=== PATIENT | male | born 1980 | race Caucasian/White ===

== ENCOUNTER 2019-06-05 19:45 | Emergency (ER) | payer BC ==
[2019-06-05] MEDS ORDERED: MAGNESIUM SULFATE 1 gm IVPB 1 GM/100 ML BAG IV ONE (19:58)
[2019-06-05] MEDS ORDERED: MORPHINE 4 MG/ML SYR ONE (19:58)
[2019-06-05] MEDS ORDERED: TAMSULOSIN 0.4 MG SR CAP ONE (19:58)
[2019-06-05 20:12] LABS: Absolute Lymphocytes (CBC) 2.9 K/uL (0.7-4.9); Hematocrit 47.6 % (39.6-49.0); MPV 8.4 fL (7.6-11.3); RBC Red Blood Cell Count 5.51 M/uL (4.33-5.43)
[2019-06-05 20:15] LABS: Urine Mucus 1+ /HPF (NONE SEEN)
[2019-06-05 20:16] LABS: Urine Bacteria >50 /HPF (NONE SEEN); Urine Culture Reflex Order REFLEXED; Urine RBC >50 /HPF (NONE SEEN); Urine Yeast MANY (NONE SEEN)
[2019-06-05 20:27] LABS: Albumin 4.2 g/dL (3.4-5.0); Bilirubin Direct 0.1 mg/dL (0-0.2); Bilirubin Total 0.5 mg/dL (0.2-1.0); Potassium 3.7 mmol/L (3.5-5.1); Protein, Total 7.9 g/dL (6.4-8.2)
[2019-06-05] MEDS ORDERED: HYDROMORPHONE HCL 1 MG/ML INJ ONE (20:28)
[2019-06-05] MEDS ORDERED: KETOROLAC 30 MG/ML INJ ONE (20:28)
--- NOTE | 2019-06-05 20:44 | RAD REPORT ---
EXAM DESCRIPTION: CT - Stone Protocol - 06/05/2019 8:11 pm CLINICAL HISTORY: Abdominal pain. Right flank pain COMPARISON: None. TECHNIQUE: Computed axial tomography of the abdomen pelvis was obtained without oral or IV contrast. Lack of IV and oral contrast limits evaluation of solid organs, bowel, and vessels. Coronal reformat germania images were obtained and reviewed. All CT scans are performed using dose optimization technique as appropriate and may include automated exposure control or mA/KV adjustment according to patient size. FINDINGS: Tiny bilateral renal calculi. Mild right hydronephrosis. 3 millimeter calculus is present within the distal right ureter.A bladder calculus is not present. The liver, spleen, pancreas and adrenals appear grossly normal There is no evidence of diverticulitis. The appendix appears normal Small to moderate bilateral hernias contain fat. Small umbilical hernia IMPRESSION: 3 millimeter calculus distal right ureter resulting in mild right hydronephrosis
[2019-06-05 21:06] LABS: Urine Blood 3+ (NEG); Urine Glucose NEGATIVE (NEG); Urine Protein 3+ (NEG); Urine Specific Gravity >1.030 (1.005-1.030); Urine pH 5.5 (5.0-7.0)
[2019-06-05] MEDS ORDERED: HYDROMORPHONE HCL 0.5 MG/0.5 ML INJ ONE (22:28)
--- NOTE | 2019-06-05 23:04 | ER ---
Nurse's Notes [facility] Name: Mack Duffy Age: 39 yrs Sex: Male : 1980 Arrival Date: 06/05/2019 Time: 19:47 Bed 6 Private MD: Diagnosis: Ureterolithiasis Presentation: 06/05 19:48 Presenting complaint: Patient states: he had sudden onset of right sided pain radiating bb to abdomen pain is 10/10 continuous he is having difficulty walking, pain started suddenly 30-60 minutes ago and he has not had these symptoms before although he does have chronic back pain from "bad discs". Transition of care: patient was not received from another setting of care. Onset of symptoms was June 05, 2019. Risk Assessment: Do you want to hurt yourself or someone else? Patient reports no desire to harm self or others. Initial Sepsis Screen: Does the patient meet any 2 criteria? No. Patient's initial sepsis screen is negative. Does the patient have a suspected source of infection? No. Patient's initial sepsis screen is negative. Care prior to arrival: None. 19:48 Method Of Arrival: Wheelchair bb 19:48 Acuity: ARIANA 3 bb Historical: - Allergies: 19:52 Vicodin; bb 19:52 mangos; bb - Home Meds: 19:52 Unable to obtain [Active]; bb - PMHx: 19:52 PTSD; ulcertive colitis; chronic back pain; sciatica; bb - PSHx: 19:52 Cholecystectomy; bb - Immunization history:: Adult Immunizations up to date. - Social history:: Smoking status: Patient/guardian denies using tobacco, Patient uses alcohol, occasionally. Patient/guardian denies using street drugs. - Ebola Screening: : No symptoms or risks identified at this time. - Family history:: not pertinent. - Hospitalizations: : No recent hospitalization is reported. Screenin:53 Abuse screen: Denies threats or abuse. Nutritional screening: No deficits noted. jb4 Tuberculosis screening: No symptoms or risk factors identified. Fall Risk IV access (20 points). Gait- Impaired (20 pts.). Total Marie Fall Scale indicates Low Risk Score (25-44 pts). Fall prevention measures have been instituted. Side Rails Up X 2 Placed close to Nursing Station Frequent Obs/Assesments occuring Family Present and informed to notify staff if they need to leave bedside As available Patient and Family Educated on Fall Prevention Program and strategies. Assessment: 19:50 General: Appears distressed, uncomfortable, Behavior is cooperative, agitated, anxious, jb4 restless. Pain: Complains of pain in anterior aspect of right lateral abdomen and right lower quadrant Pain radiates to right low back Pain currently is 10 out of 10 on a pain scale. Quality of pain is described as stabbing, Pain began 1 hour ago. Neuro: Level of Consciousness is awake, alert, obeys commands, Oriented to person, place, time, situation. Cardiovascular: Skin is warm and diophoretic.. Respiratory: Airway is patent Respiratory effort is even, unlabored, Respiratory pattern is regular, tachypnea. GI: Abdomen is flat, non-distended. : No deficits noted. No signs and/or symptoms were reported regarding the genitourinary system. EENT: No deficits noted. No signs and/or symptoms were reported regarding the EENT system. Derm: Skin is intact, Skin is diaphoretic, Skin is normal, Skin temperature is warm. Musculoskeletal: Circulation, motion, and sensation intact. Range of motion: intact in all extremities. 20:26 Reassessment: Patient appears in no apparent distress at this time. No changes from jb4 previously documented assessment. Patient and/or family updated on plan of care and expected duration. Pain level reassessed. Pt back from CT reports pain medication had no effect, provider notified, see MAR for orders. 20:50 Reassessment: Patient appears in no apparent distress at this time. Patient and/or jb4 family updated on plan of care and expected duration. Pain level reassessed. Patient is alert, oriented x 3, equal unlabored respirations, skin warm/dry/pink. PT reports that pain is reduced after Toradol and Dilaudid administration. Provider at the bedside. Patient states feeling better. 22:30 Reassessment: Patient appears in no apparent distress at this time. Patient and/or jb4 family updated on plan of care and expected duration. Pain level reassessed. Patient is alert, oriented x 3, equal unlabored respirations, skin warm/dry/pink. 23:01 Reassessment: Patient appears in no apparent distress at this time. Patient and/or jb4 family updated on plan of care and expected duration. Pain level reassessed. Patient is alert, oriented x 3, equal unlabored respirations, skin warm/dry/pink. Patient states feeling better. 23:27 Reassessment: Patient appears in no apparent distress at this time. Patient and/or jb4 family updated on plan of care and expected duration. Pain level reassessed. Patient is alert, oriented x 3, equal unlabored respirations, skin warm/dry/pink. Pt verbalized understanding of d/c and follow up instructions. assisted to vehicle via wheelchair. Patient states feeling better. Vital Signs: 19:52 BP 154 / 98; Pulse 81; Resp 18 S; Temp 98.3(O); Pulse Ox 99% on R/A; Weight 127.01 kg bb (R); Height 6 ft. 5 in. (195.58 cm) (R); Pain 10/10; 20:30 BP 137 / 106; Pulse 65; Resp 20; Pulse Ox 99% on R/A; jb4 20:45 BP 130 / 88; Pulse 70; Resp 16; Pulse Ox 97% on R/A; jb4 22:15 BP 130 / 82; Pulse 72; Resp 16; Pulse Ox 98% on R/A; jb4 23:01 BP 121 / 77; Pulse 67; Resp 16; Pulse Ox 97% on R/A; jb4 19:52 Body Mass Index 33.20 (127.01 kg, 195.58 cm) bb ED Course: 19:47 Patient arrived in ED. bb 19:50 Jose Alejandro Portillo MD is Attending Physician. rn 19:50 Salvatore Sweet RN is Primary Nurse. jb4 19:50 Inserted saline lock: 20 gauge in right antecubital area, using aseptic technique. jb4 Blood collected. 19:51 Triage completed. bb 19:52 Arm band placed on Patient placed in an exam room, on a stretcher, on pulse oximetry. bb Family accompanied patient. 19:53 Patient has correct armband on for positive identification. Placed in gown. Bed in low jb4 position. Call light in reach. Side rails up X2. Pulse ox on. NIBP on. 20:11 CT Stone Protocol In Process Unspecified. EDMS 23:00 Reagan Ordonez MD is Referral Physician. rn 23:27 No provider procedures requiring assistance completed. IV discontinued, intact, jb4 bleeding controlled, No redness/swelling at site. Pressure dressing applied. Administered Medications: 20:00 Drug: Flomax 0.4 mg Route: PO; jb4 20:37 Follow up: Response: No adverse reaction jb4 20:02 Drug: morphine 4 mg Route: IVP; Site: right antecubital; jb4 20:26 Follow up: Response: No adverse reaction; Pain is unchanged, physician notified; RASS: jb4 Restless (+1) 20:20 Drug: Magnesium Sulfate 1 grams Route: IVPB; Infused Over: 1 hrs; Site: right jb4 antecubital; 21:20 Follow up: Response: No adverse reaction; IV Status: Completed infusion; IV Intake: jb4 100ml 20:29 Drug: TORadol - Ketorolac 15 mg Route: IVP; Site: right antecubital; jb4 20:43 Follow up: Response: No adverse reaction; Pain is decreased jb4 20:35 Drug: Dilaudid 1 mg {Note: Rass score of 1.} Route: IVP; Site: right antecubital; jb4 20:43 Follow up: Response: No adverse reaction; Pain is decreased; RASS: Alert and Calm (0) jb4 21:51 CANCELLED (Duplicate Order): Dilaudid 1 mg IVP once; RASS on ADMIN: Combtv4, Very rn Agttd3, Agttd2, Rstlss1, AlertClm0, Drwsy-1, Lt Sdtn-2, Mod Sdtn-3, Dp Sdtn-4, UnArsble-5 22:30 Drug: Dilaudid 0.5 mg {Note: RASS 0.} Route: IVP; Site: right antecubital; bb 23:00 Follow up: Response: No adverse reaction; Pain is decreased; RASS: Alert and Calm (0) jb4 Intake: 21:20 IV: 100ml; Total: 100ml. jb4 Outcome: 23:01 Discharge ordered by . rn 23:27 Discharged to home via wheelchair, with family. jb4 23:27 Condition: stable 23:27 Discharge instructions given to patient, family, Instructed on discharge instructions, follow up and referral plans. medication usage, Demonstrated understanding of instructions, follow-up care, medications, Prescriptions given X 4. 23:28 Patient left the ED. jb4 Signatures: Dispatcher [employer] EDMS Valorie Whitea, RN RN bb Jose Alejandro Portillo MD MD rn Bryson, James, RN RN jb4
--- NOTE | 2019-06-05 23:05 | EDPHYS ---
Physician Documentation [facility] Name: Mack Duffy Age: 39 yrs Sex: Male : 1980 Arrival Date: 06/05/2019 Time: 19:47 Bed 6 Private MD: ED Physician Jose Alejandro Portillo HPI: 06/05 19:55 This 39 yrs old Male presents to ER via Wheelchair with complaints of Flank rn Pain, Abdominal Pain. 19:55 The patient complains of pain in the mid back area. The pain radiates to the abdomen. rn Onset: The symptoms/episode began/occurred 1 hour(s) ago. Modifying factors: The symptoms are alleviated by nothing. the symptoms are aggravated by nothing. Associated signs and symptoms: Pertinent positives: nausea. Severity of pain: At its worst the pain was severe in the emergency department the pain is unchanged. The patient has not experienced similar symptoms in the past. Reports sudden onset right flank pain, difficulty urinating, no hx of kidney stones, No fever, no trauma, no vomiting/diarrhea/blood in stools.. Historical: - Allergies: 19:52 Vicodin; bb 19:52 mangos; bb - Home Meds: 19:52 Unable to obtain [Active]; bb - PMHx: 19:52 PTSD; ulcertive colitis; chronic back pain; sciatica; bb - PSHx: 19:52 Cholecystectomy; bb - Immunization history:: Adult Immunizations up to date. - Social history:: Smoking status: Patient/guardian denies using tobacco, Patient uses alcohol, occasionally. Patient/guardian denies using street drugs. - Ebola Screening: : No symptoms or risks identified at this time. - Family history:: not pertinent. - Hospitalizations: : No recent hospitalization is reported. ROS: 19:55 Constitutional: Negative for fever, chills, and weight loss, Eyes: Negative for injury, rn pain, redness, and discharge, Neck: Negative for injury, pain, and swelling, Cardiovascular: Negative for chest pain, palpitations, and edema, Respiratory: Negative for shortness of breath, cough, wheezing, and pleuritic chest pain, Abdomen/GI: + right flank pain and nausea : + difficulty urinating MS/Extremity: Negative for injury and deformity, Skin: Negative for injury, rash, and discoloration, Neuro: Negative for headache, weakness, numbness, tingling, and seizure. Exam: 19:55 Constitutional: This is a well developed, well nourished patient who is awake, alert, rn + moderate distress, holding right side Head/Face: Normocephalic, atraumatic. ENT: MMM Cardiovascular: Regular rate and rhythm. No pulse deficits. Respiratory: Mild hyperventilation Abdomen/GI: soft, non-tender, neg bell, no peritoneal signs Skin: Warm, dry MS/ Extremity: Pulses equal, no cyanosis. Neurovascular intact. Full, normal range of motion. Equal circumference. Neuro: Awake and alert, GCS 15, oriented to person, place, time, and situation. Cranial nerves II-XII grossly intact. Motor strength 5/5 in all extremities. Sensory grossly intact. Cerebellar exam normal. Vital Signs: 19:52 BP 154 / 98; Pulse 81; Resp 18 S; Temp 98.3(O); Pulse Ox 99% on R/A; Weight 127.01 kg bb (R); Height 6 ft. 5 in. (195.58 cm) (R); Pain 10/10; 20:30 BP 137 / 106; Pulse 65; Resp 20; Pulse Ox 99% on R/A; jb4 20:45 BP 130 / 88; Pulse 70; Resp 16; Pulse Ox 97% on R/A; jb4 22:15 BP 130 / 82; Pulse 72; Resp 16; Pulse Ox 98% on R/A; jb4 23:01 BP 121 / 77; Pulse 67; Resp 16; Pulse Ox 97% on R/A; jb4 19:52 Body Mass Index 33.20 (127.01 kg, 195.58 cm) bb MDM: 19:50 Patient medically screened. rn 20:53 Response to treatment: the patient's symptoms have markedly improved after treatment. rn 22:59 Differential diagnosis: nephrolithiasis. Data reviewed: vital signs, nurses notes, animal laboratory helper test result(s), radiologic studies, CT scan, and as a result, I will discharge patient. Counseling: I had a detailed discussion with the patient and/or guardian regarding: the historical points, exam findings, and any diagnostic results supporting the discharge/admit diagnosis, lab results, radiology results, the need for outpatient follow up, to return to the emergency department if symptoms worsen or persist or if there are any questions or concerns that arise at home. Special discussion: I discussed with the patient/guardian in detail that at this point there is no indication for admission to the hospital. It is understood, however, that if the symptoms persist or worsen the patient needs to return immediately for re-evaluation. ED course: Patient much improved, 3mm distal stone, will dc home with pain meds and return precautions.. 06/05 19:53 Order name: Basic Metabolic Panel rn 06/05 19:53 Order name: CBC with Diff; Complete Time: 21:03 06/05 19:53 Order name: Hepatic Function; Complete Time: 21: 06/05 19:53 Order name: Urine Microscopic Only; Complete Time: 21:03 06/05 19:54 Order name: Basic Metabolic Panel; Complete Time: 21:03 EDNC 06/05 20:20 Order name: Urine Culture [facility] 06/05 19:53 Order name: CT Stone Protocol; Complete Time: 21:03 06/05 20:39 Order name: Urine Dipstick--Ancillary (enter results) [facility] 06/05 19:53 Order name: IV Saline Lock; Complete Time: 19:55 06/05 19:53 Order name: Labs collected and sent; Complete Time: 19:55 rn 06/05 19:53 Order name: Urine Dipstick-Ancillary (obtain specimen); Complete Time: 20:07 rn Administered Medications: 20:00 Drug: Flomax 0.4 mg Route: PO; jb4 20:37 Follow up: Response: No adverse reaction jb4 20:02 Drug: morphine 4 mg Route: IVP; Site: right antecubital; jb4 20:26 Follow up: Response: No adverse reaction; Pain is unchanged, physician notified; RASS: jb4 Restless (+1) 20:20 Drug: Magnesium Sulfate 1 grams Route: IVPB; Infused Over: 1 hrs; Site: right jb4 antecubital; 21:20 Follow up: Response: No adverse reaction; IV Status: Completed infusion; IV Intake: jb4 100ml 20:29 Drug: TORadol - Ketorolac 15 mg Route: IVP; Site: right antecubital; jb4 20:43 Follow up: Response: No adverse reaction; Pain is decreased jb4 20:35 Drug: Dilaudid 1 mg {Note: Rass score of 1.} Route: IVP; Site: right antecubital; jb4 20:43 Follow up: Response: No adverse reaction; Pain is decreased; RASS: Alert and Calm (0) jb4 21:51 CANCELLED (Duplicate Order): Dilaudid 1 mg IVP once; RASS on ADMIN: Combtv4, Very rn Agttd3, Agttd2, Rstlss1, AlertClm0, Drwsy-1, Lt Sdtn-2, Mod Sdtn-3, Dp Sdtn-4, UnArsble-5 22:30 Drug: Dilaudid 0.5 mg {Note: RASS 0.} Route: IVP; Site: right antecubital; bb 23:00 Follow up: Response: No adverse reaction; Pain is decreased; RASS: Alert and Calm (0) jb4 Disposition: 06/05/19 23:01 Discharged to Home. Impression: Ureterolithiasis. - Condition is Stable. - Discharge Instructions: Kidney Stones, Dietary Guidelines to Help Prevent Kidney Stones. - Prescriptions for Zofran ODT 4 mg Oral tablet,disintegrating - place 1 tablet by TRANSLINGUAL route every 8 hours As needed; 20 tablet. Ibuprofen 800 mg Oral Tablet - take 1 tablet by ORAL route every 12 hours As needed take with food; 20 tablet. Tylenol- Codeine #3 300-30 mg Oral Tablet - take 2 tablets by ORAL route every 6 hours As needed; 20 tablet. Flomax 0.4 mg Oral Capsule, Sust. Release 24 hr - take 1 capsule by ORAL route once daily 1/2 hour following the same meal each day. Stop taking when pain stops. Only take while passing stone.; 10 capsule. - Medication Reconciliation Form, Thank You Letter, Antibiotic Education, Prescription Opioid Use form. - Follow up: Reagan Ordoenz MD; When: As needed; Reason: Recheck today's complaints, Re-evaluation by your physician. - Problem is new. - Symptoms have improved. Signatures: Dispatcher [employer] Samina Denny RN RN Jose Alejandro Madison MD MD rn Bryson, James, RN RN jb4 Corrections: (The following items were deleted from the chart) 21:51 21:51 Dilaudid 1 mg IVP once; RASS on ADMIN: Combtv4, Very Agttd3, Agttd2, Rstlss1, rn AlertClm0, Drwsy-1, Lt Sdtn-2, Mod Sdtn-3, Dp Sdtn-4, UnArsble-5 ordered. rn 23:28 23:01 06/05/2019 23:01 Discharged to Home. Impression: Ureterolithiasis. Condition is jb4 Stable. Forms are Medication Reconciliation Form, Thank You Letter, Antibiotic Education, Prescription Opioid Use. Follow up: Reagan Ordonez; When: As needed; Reason: Recheck today's complaints, Re-evaluation by your physician. Problem is new. Symptoms have improved. rn
== END 2019-06-05 23:28 | disposition home or self-care (01) ==
LOC: ER 19:45
DX: N20.1 Calculus of ureter (principal); Z88.6 Allergy status to analgesic agent; Z91.018 Allergy to other foods
CPT/HCPCS: 96365; 87088; 85025; 87086; 80048; 36415; 80076; 76377; 74176; 96375; 99284; J3475; J1170 ×2; 81003; 81015

== ENCOUNTER 2019-06-08 08:17 | Observation (INO) | payer BC ==
[2019-06-08] MEDS ORDERED: MAGNESIUM SULFATE 1 gm IVPB 1 GM/100 ML BAG IV ONE (08:33)
[2019-06-08] MEDS ORDERED: ONDANSETRON 4 MG/2 ML VIAL ONE (08:33)
[2019-06-08] MEDS ORDERED: MORPHINE 4 MG/ML SYR ONE (08:33)
[2019-06-08] MEDS ORDERED: HYDROMORPHONE HCL 0.5 MG/0.5 ML INJ ONE (08:53)
[2019-06-08 08:54] LABS: Potassium 4.1 mmol/L (3.5-5.1)
--- NOTE | 2019-06-08 08:55 | RAD REPORT ---
EXAM DESCRIPTION: CT - Stone Protocol - 06/08/2019 8:45 am CLINICAL HISTORY: Right flank pain, right lower quadrant pain, history kidney stones COMPARISON: June 05 CT study TECHNIQUE: Axial 5 mm thick images were obtained without oral or IV contrast. The [id number] span s the entirety of the system including uppermost abdomen and lung bases. All CT scans are performed using dose optimization technique as appropriate and may include automated exposure control or mA/KV adjustment according to patient size. FINDINGS: The 3-4 mm obstructing calculus distal right ureter remains unchanged in position. Right-s ided hydronephrosis is slightly worse than seen June 05. Perinephric stranding is present new from prior imaging. No acute left finding. No suspicious renal masses. Isodense masses and pyelonephrit is are not excluded on a stone protocol CT scan. Urinary bladder is contracted. No acute finding. No significant adrenal finding. Imaged portions of the liver, spleen and pancreas show no suspicious findings on non-contrast imaging . Cholecystectomy clips are present. No biliary tree dilatation. No suspicious bowel findings. Moderate stool volume seen in the colon. No hernia, mass or bulky lymphadenopathy noted. No free air, free fluid or inflammatory stranding. No significant bony abnormality. IMPRESSION: Approximately 3-4 mm distal right ureter calcification at the UVJ. Size and position hav e not changed. Right-sided hydronephrosis is slightly worse than seen June 05. Right-sided perinephric stranding h as developed. Isodense masses and pyelonephritis are not excluded on stone protocol technique.
[2019-06-08] MEDS ORDERED: KETOROLAC 30 MG/ML INJ ONE (09:11)
[2019-06-08] MEDS ORDERED: NA CHLORIDE 0.9% 1,000 ML ONE (09:11)
[2019-06-08] MEDS ORDERED: CEFTRIAXONE/SWI 1gm 1 GM/10 ML SYR ONE (09:27)
[2019-06-08 09:38] LABS: Absolute Lymphocytes (CBC) 1.3 K/uL (0.7-4.9); Basophils % 0.7 % (0-1.3); Hematocrit 43.1 % (39.6-49.0); Lymphocytes % 18.4 % (15.3-44.8); MPV 8.2 fL (7.6-11.3); RBC Red Blood Cell Count 5.03 M/uL (4.33-5.43)
--- NOTE | 2019-06-08 09:40 | ER ---
Nurse's Notes [facility] Name: Mack Duffy Age: 39 yrs Sex: Male : 1980 Arrival Date: 06/08/2019 Time: 08:18 Bed 20 Private MD: Diagnosis: Calculus of kidney and ureter;Acute tubulo-interstitial nephritis Presentation: 06/08 08:27 Presenting complaint: Patient states: R flank pain that radiates to RLQ x 3 days. ss Patient was recently diagnosed with a kidney stones, but reports pain has not improved despite taking medications. Transition of care: patient was not received from another setting of care. Onset of symptoms was June 06, 2019. Risk Assessment: Do you want to hurt yourself or someone else? Patient reports no desire to harm self or others. Initial Sepsis Screen: Does the patient meet any 2 criteria? No. Patient's initial sepsis screen is negative. Does the patient have a suspected source of infection? No. Patient's initial sepsis screen is negative. Care prior to arrival: None. 08:27 Acuity: ARIANA 2 ss 08:27 Method Of Arrival: Ambulatory ss Historical: - Allergies: 08:29 mangos; ss 08:29 Vicodin; ss - PMHx: 08:29 ulcertive colitis; sciatica; PTSD; chronic back pain; ss - PSHx: 08:29 Cholecystectomy; ss - Immunization history:: Adult Immunizations up to date. - Social history:: Smoking status: Patient/guardian denies using tobacco. - Ebola Screening: : Patient denies exposure to infectious person Patient denies travel to an Ebola-affected area in the 21 days before illness onset. Screenin:35 Abuse screen: Denies threats or abuse. Denies injuries from another. Nutritional sv screening: No deficits noted. Tuberculosis screening: No symptoms or risk factors identified. Fall Risk None identified. Assessment: 08:35 General: Appears distressed, uncomfortable, well developed, Behavior is cooperative, sv appropriate for age, anxious, restless. Pain: Complains of pain in right flank Pain radiates to right lower quadrant Pain currently is 10 out of 10 on a pain scale. Quality of pain is described as stabbing, Pain began 2-3 days ago. Is continuous, Noted to be grimacing, restless. Neuro: Level of Consciousness is awake, alert, obeys commands, Oriented to person, place, time, situation, Moves all extremities. Full function Speech is normal. Respiratory: Airway is patent Respiratory effort is even, unlabored, Respiratory pattern is regular, symmetrical. GI: Abdomen is round Abd is soft X 4 quads Abdomen is tender to palpation in right lower quadrant. : Reports pain in right flank(s), lower quadrant(s). Derm: Skin is pink, warm \T\ dry. Vital Signs: 08:26 BP 96 / 61; Pulse 73; Resp 20; Pulse Ox 97% on R/A; Weight 124.74 kg; Height 6 ft. 6 ss in. (198.12 cm); Pain 10/10; 08:54 BP 133 / 80; Pulse 75; Resp 24; Pulse Ox 95% ; sv 09:18 Pain 7/10; sv 09:40 Pain 7/10; sv 09:44 BP 154 / 91; Pulse 73; Resp 20; Pulse Ox 99% ; sv 09:50 Temp 98.8(O); la1 10:48 BP 158 / 86; Pulse 86; Resp 16; Pulse Ox 98% on R/A; la1 08:26 Body Mass Index 31.78 (124.74 kg, 198.12 cm) ss ED Course: 08:18 Patient arrived in ED. as 08:20 Gracie Reynaga [facility]C [facility]. kb 08:20 Miguel Dang MD is Attending Physician. kb 08:26 Katy Jama RN is Primary Nurse. sv 08:26 Arm band placed on right wrist. ss 08:28 Triage completed. ss 08:28 Initial lab(s) drawn, by me, sent to lab. Inserted saline lock: 20 gauge in right em1 antecubital area, using aseptic technique. Blood collected. 08:35 Patient has correct armband on for positive identification. Bed in low position. Call sv light in reach. Pulse ox on. NIBP on. Door closed. Head of bed elevated. 08:[address] via wheelchair. sv 08:46 Stone Protocol In Process Unspecified. EDMS 08:[address] Patient moved back from CT. sv 09:18 CBC with Diff Sent. sv 09:19 Dee Jacobsen MD is Hospitalizing Provider. kb 09:44 Report given to Woodrow MCMILLAN. sv 09:49 Awaiting bed assignment. sv 11:10 Woodrow Marcial, RN is Primary Nurse. la1 11:33 No provider procedures requiring assistance completed. Patient admitted, IV remains in la1 place. Administered Medications: 08:35 Drug: Zofran 4 mg Route: IVP; Site: right antecubital; sv 08:57 Follow up: Response: No adverse reaction sv 08:37 Drug: morphine 4 mg {Note: RASS3.} Route: IVP; Site: right antecubital; sv 08:57 Follow up: Response: No adverse reaction; No change in condition; RASS: Very agitated sv (+3) 08:39 Drug: Magnesium Sulfate 1 grams Route: IVPB; Infused Over: 1 hrs; Site: right sv antecubital; 10:02 Follow up: IV Status: Completed infusion la1 08:56 Drug: Dilaudid 0.5 mg {Note: RASS 3.} Route: IVP; Site: right antecubital; sv 09:18 Follow up: Pain 7/10 Adult; Response: No adverse reaction; Pain is decreased; RASS: sv Agitated (+2) 09:18 Drug: TORadol - Ketorolac 15 mg Route: IVP; Site: right antecubital; sv 09:40 Follow up: Pain 7/10 Adult; Response: No adverse reaction sv 09:39 Drug: Rocephin 1 grams Route: IV; Rate: calculated rate; Site: right antecubital; sv 09:40 Follow up: Response: No adverse reaction; IV Status: Completed infusion; IV Intake: 10mlsv 09:39 Drug: NS 0.9% 1000 ml Route: IV; Rate: 125 ml/hr; Site: right antecubital; sv 10:02 Follow up: IV Status: Infusion continued upon admission la1 10:17 Drug: Dilaudid 1 mg {Note: RASS=1.} Route: IVP; Site: right antecubital; la1 11:11 Follow up: Response: No adverse reaction; RASS: Alert and Calm (0) la1 Intake: 09:40 IV: 10ml; Total: 10ml. sv Outcome: 09:20 Decision to Hospitalize by Provider. kb 11:33 Discharged to home ambulatory. la1 11:33 Condition: stable 11:33 Instructed on the need for admit. 11:34 Patient left the ED. la1 Signatures: Dispatcher [employer] EDMS Ronnell, Gracie, STUDENT DEAN-C STUDENT DEAN-Ckb Katy Jama, RN RN modesto Lyman, Ramón Payne 1 Tonie Wyman, RN RN ss Woodrow Marcial RN RN la1
--- NOTE | 2019-06-08 09:40 | EDPHYS ---
Physician Documentation [facility] Name: Mack Duffy Age: 39 yrs Sex: Male : 1980 Arrival Date: 06/08/2019 Time: 08:18 Bed 20 Private MD: DOUGLAS Physician Miguel Dang HPI: 06/08 09:15 This 39 yrs old Male presents to ER via Ambulatory with complaints of kb Possible Kidney Stone. 09:17 The patient complains of pain in the right flank. The pain radiates to the right lower kb quadrant. Onset: The symptoms/episode began/occurred 4 day(s) ago. Modifying factors: The symptoms are alleviated by nothing. the symptoms are aggravated by nothing. Associated signs and symptoms: Pertinent positives: nausea, vomiting, difficulty urinating, Pertinent negatives: diarrhea, dizziness, dysuria, fever, urinary frequency, headache, hematuria, pain radiating to the lower extremities. Severity of pain: At its worst the pain was severe in the emergency department the pain is unchanged. The patient has not experienced similar symptoms in the past. The patient has been recently seen at the [facility] Emergency Department, last week, for similar complaints. Pt was seen on 06/05 for a kidney stone. States the pain has become more severe and has not moved. . Historical: - Allergies: 08:29 mangos; ss 08:29 Vicodin; ss - PMHx: 08:29 ulcertive colitis; sciatica; PTSD; chronic back pain; ss - PSHx: 08:29 Cholecystectomy; ss - Immunization history:: Adult Immunizations up to date. - Social history:: Smoking status: Patient/guardian denies using tobacco. - Ebola Screening: : Patient denies exposure to infectious person Patient denies travel to an Ebola-affected area in the 21 days before illness onset. ROS: 09:16 Constitutional: Negative for fever, chills, and weight loss, Neck: Negative for injury, kb pain, and swelling, Cardiovascular: Negative for chest pain, palpitations, and edema, Respiratory: Negative for shortness of breath, cough, wheezing, and pleuritic chest pain, MS/Extremity: Negative for injury and deformity, Skin: Negative for injury, rash, and discoloration, Neuro: Negative for headache, weakness, numbness, tingling, and seizure. 09:16 Abdomen/GI: Positive for abdominal pain, nausea and vomiting. 09:16 : Positive for flank pain, difficulty urinating. Exam: 09:15 Constitutional: This is a well developed, well nourished patient who is awake, alert, kb and in no acute distress. Head/Face: Normocephalic, atraumatic. Neck: Trachea midline, no thyromegaly or masses palpated, and no cervical lymphadenopathy. Supple, full range of motion without nuchal rigidity, or vertebral point tenderness. No Meningismus. Chest/axilla: Normal chest wall appearance and motion. Nontender with no deformity. No lesions are appreciated. Cardiovascular: Regular rate and rhythm with a normal S1 and S2. No gallops, murmurs, or rubs. Normal PMI, no JVD. No pulse deficits. Respiratory: Lungs have equal breath sounds bilaterally, clear to auscultation and percussion. No rales, rhonchi or wheezes noted. No increased work of breathing, no retractions or nasal flaring. Skin: Warm, dry with normal turgor. Normal color with no rashes, no lesions, and no evidence of cellulitis. MS/ Extremity: Pulses equal, no cyanosis. Neurovascular intact. Full, normal range of motion. Neuro: Awake and alert, GCS 15, oriented to person, place, time, and situation. Cranial nerves II-XII grossly intact. Motor strength 5/5 in all extremities. Sensory grossly intact. Cerebellar exam normal. Normal gait. 09:15 Abdomen/GI: Inspection: abdomen appears normal, Bowel sounds: normal, Palpation: moderate abdominal tenderness, in the right lower quadrant. 09:15 Back: CVA tenderness, that is moderate, is noted on the right. Vital Signs: 08:26 BP 96 / 61; Pulse 73; Resp 20; Pulse Ox 97% on R/A; Weight 124.74 kg; Height 6 ft. 6 ss in. (198.12 cm); Pain 10/10; 08:54 BP 133 / 80; Pulse 75; Resp 24; Pulse Ox 95% ; sv 09:18 Pain 7/10; sv 09:40 Pain 7/10; sv 09:44 BP 154 / 91; Pulse 73; Resp 20; Pulse Ox 99% ; sv 09:50 Temp 98.8(O); la1 10:48 BP 158 / 86; Pulse 86; Resp 16; Pulse Ox 98% on R/A; la1 08:26 Body Mass Index 31.78 (124.74 kg, 198.12 cm) ss MDM: 08:20 Patient medically screened. kb 09:12 Data reviewed: vital signs, nurses notes. Data interpreted: Pulse oximetry: on room air kb is 95 %. Interpretation: normal. Counseling: I had a detailed discussion with the patient and/or guardian regarding: the historical points, exam findings, and any diagnostic results supporting the discharge/admit diagnosis, lab results, radiology results, the need for further work-up and treatment in the hospital. Physician consultation: Reagan Ordonez MD was contacted at 09:00, regarding consult, patient's condition, and will see patient shortly. 09:15 Physician consultation: Dee Jacobsen MD was called at 09:15, left message. kb 06/08 08:20 Order name: Basic Metabolic Panel kb 06/08 08:38 Order name: Basic Metabolic Panel; Complete Time: 08:55 EDMS 06/08 09:14 Order name: CBC with Diff; Complete Time: 09:41 kb 06/08 11:27 Order name: Urine Dipstick--Ancillary (enter results) ms 06/08 11:33 Order name: Urine Dipstick-Ancillary; Complete Time: 11:48 EDMS 06/08 08:35 Order name: Stone Protocol; Complete Time: 09:02 EDMS 06/08 08:20 Order name: IV Start; Complete Time: 08:33 kb 06/08 08:21 Order name: Urine Dipstick-Ancillary (obtain specimen); Complete Time: 11:11 kb 06/08 09:14 Order name: NPO; Complete Time: 09:18 kb Administered Medications: 08:35 Drug: Zofran 4 mg Route: IVP; Site: right antecubital; sv 08:57 Follow up: Response: No adverse reaction sv 08:37 Drug: morphine 4 mg {Note: RASS3.} Route: IVP; Site: right antecubital; sv 08:57 Follow up: Response: No adverse reaction; No change in condition; RASS: Very agitated sv (+3) 08:39 Drug: Magnesium Sulfate 1 grams Route: IVPB; Infused Over: 1 hrs; Site: right sv antecubital; 10:02 Follow up: IV Status: Completed infusion la1 08:56 Drug: Dilaudid 0.5 mg {Note: RASS 3.} Route: IVP; Site: right antecubital; sv 09:18 Follow up: Pain 7/10 Adult; Response: No adverse reaction; Pain is decreased; RASS: sv Agitated (+2) 09:18 Drug: TORadol - Ketorolac 15 mg Route: IVP; Site: right antecubital; sv 09:40 Follow up: Pain 7/10 Adult; Response: No adverse reaction sv 09:39 Drug: Rocephin 1 grams Route: IV; Rate: calculated rate; Site: right antecubital; sv 09:40 Follow up: Response: No adverse reaction; IV Status: Completed infusion; IV Intake: 10mlsv 09:39 Drug: NS 0.9% 1000 ml Route: IV; Rate: 125 ml/hr; Site: right antecubital; sv 10:02 Follow up: IV Status: Infusion continued upon admission la1 10:17 Drug: Dilaudid 1 mg {Note: RASS=1.} Route: IVP; Site: right antecubital; la1 11:11 Follow up: Response: No adverse reaction; RASS: Alert and Calm (0) la1 Disposition: 06/09 07:32 Co-signature as Attending Physician, Miguel Dang MD I agree with the assessment and rae plan of care. Disposition: 06/08/19 09:20 Hospitalization ordered by Dee Jacobsen for Observation. Preliminary diagnosis are Calculus of kidney and ureter, Acute tubulo-interstitial nephritis. - Bed requested for Telemetry/MedSurg (observation). - Status is Observation. la1 - Condition is Stable. - Problem is an ongoing problem. - Symptoms are unchanged. UTI on Admission? Yes Signatures: Dispatcher [employer] EDAZ Gracie Reynaga, NURSERY HAND-C NURSERY HAND-Katy Lr RN Shy Moses RN Miguel Haines MD MD cha Smirch, Shelby, RN RN ss Attema, Lee, RN RN la1 Corrections: (The following items were deleted from the chart) 06/08 09:06 09:02 Stone Protocol+CT.RAD.BRZ ordered. EDAZ EDMS 10:53 09:20 Hospitalization Ordered by Dee Jacobsen MD for Observation. Preliminary diagnosis dw is Calculus of kidney and ureter; Acute tubulo-interstitial nephritis. Bed requested for Telemetry/MedSurg (observation). Status is Observation. Condition is Stable. Problem is an ongoing problem. Symptoms are unchanged. UTI on Admission? Yes. kb 11:34 10:53 06/08/2019 09:20 Hospitalization Ordered by Dee Jacobsen MD for Observation. la1 Preliminary diagnosis is Calculus of kidney and ureter; Acute tubulo-interstitial nephritis. Bed requested for Telemetry/MedSurg (observation). Status is Observation. Condition is Stable. Problem is an ongoing problem. Symptoms are unchanged. UTI on Admission? Yes. dw
[2019-06-08] MEDS ORDERED: NA CHLORIDE 0.9% 50 ML IV ONE (10:08)
[2019-06-08] MEDS ORDERED: HYDROMORPHONE HCL 1 MG/ML INJ ONE (10:08)
[2019-06-08 11:32] LABS: Urine Blood 2+ (NEG); Urine Glucose NEGATIVE (NEG); Urine Protein NEGATIVE (NEG); Urine Specific Gravity 1.025 (1.005-1.030); Urine pH 5.5 (5.0-7.0)
[2019-06-08] MEDS ORDERED: ONDANSETRON 4 MG/2 ML VIAL IV PRN (11:35)
[2019-06-08] MEDS: NA CHLORIDE 0.9% 1,000 ML IV SCH ×2 (11:35→18:39)
[2019-06-08 12:06] VITALS: BMI 31.8
[2019-06-08] MEDS ORDERED: MORPHINE 2 MG/ML SYR IV PRN ×2 (13:11→23:02)
--- NOTE | 2019-06-08 13:20 | P.HP ---
Certification for Inpatient Patient admitted to: Observation With expected LOS: <2 Midnights Practitioner: I am a practitioner with admitting privileges, knowledge of patient current condition, hospital course, and medical plan of care. Services: Services provided to patient in accordance with Admission requirements found in Title 42 Section 412.3 of the Code of Federal Regulations Patient History Date of Service: 06/08/19 Reason for admission: Right flank pain History of Present Illness: This is a 39-year-old male with past medical history of PTSD, ulcerative colitis admitted for right flank pain. Per patient, he started with the right flank pain, sharp, radiating to lower quadrant about 4 days ago that has been progressively worsening. This pain is associated with nausea and vomiting along with difficulty urinating. Rates it 7-8 out of 10 at its worst. There are no alleviating or exacerbating factors. Patient was seen previously around 4 days ago in the ER for similar complaints. Patient states that it has not improved and in fact the pain has worsened. He denies any fevers, chills, chest pain, shortness of breath, diarrhea/constipation, lightheadedness, dizziness, headache or vision changes. Since the pain was not improving and in fact was worsening, he came to the emergency room. In the ER, his blood pressure was 90/61, heart rate is 73, respirations of 20, afebrile and satting 97% on room air. His BMI is 31.78. his labs were fairly unremarkable. His CT scan was with 3-4 mm distal right ureteral calculi at the UVJ which is unchanged from prior imaging 4 days ago. Today the imaging shows worsening right hydronephrosis and a new perinephric stranding. In the ER, he was given IV pain medications including morphine and Toradol along with Rocephin and Zofran. At the time of my exam, he was alert oriented x3, in mild to moderate distress due to pain and hemodynamically stable. Allergies siena Allergy (Severe, Verified 06/08/19 13:50) Shortness of breath acetaminophen [From Vicodin] Allergy (Verified 06/08/19 13:50) Unknown hydrocodone [From Vicodin] Allergy (Verified 06/08/19 13:50) Unknown Home medications list reviewed: Yes Home Medications: Acetaminophen with Codeine [Tylenol with Codeine #3 Tablet] 1 tab PO Q6HP PRN Bupropion HCl [Wellbutrin Xl] 150 mg PO BID 06/08/19 Cyclobenzaprine HCl 10 mg PO BID 06/08/19 Etodolac 400 mg PO DAILY 06/08/19 Gabapentin 600 mg PO BEDTIME 06/08/19 Lurasidone HCl [Latuda] 20 mg PO BID 06/08/19 Omeprazole 1 tab PO DAILY 06/08/19 Tamsulosin HCl 1 tab PO DAILY 06/08/19 - Past Medical/Surgical History Has patient received pneumonia vaccine in the past: No Diabetic: No -: Ulcerative Colitis -: Sciatica -: PTSD -: Chronic back Pain -: Degenerative disk -: Cholesystectomy -: Tonsillectomy - Family History Father -: Cancer Notes: lung cancer Mother -: Cancer Notes: Breast Cancer - Social History Smoking Status: Former smoker Alcohol use: Yes CD- Drugs: No Caffeine use: Yes Place of Residence: Home Review of Systems 10-point ROS is otherwise unremarkable Physical Examination - Vital Signs Temperature: 97.9 F Blood Pressure: 138/97 Pulse: 74 Respirations: 16 Pulse Ox (%): 95 - Physical Exam General: Alert, Oriented x3, Mild distress, Moderate distress HEENT: Atraumatic, PERRLA, Mucous membr. moist/pink, EOMI, Sclerae nonicteric Neck: Supple, 2+ carotid pulse no bruit, No LAD, Without JVD or thyroid abnormality Respiratory: Clear to auscultation bilaterally, Normal air movement Cardiovascular: Regular rate/rhythm, Normal S1 S2 Gastrointestinal: Normal bowel sounds, No tenderness Musculoskeletal: Tenderness Integumentary: No rashes Neurological: Normal gait, Normal speech, Normal strength at 5/5 x4 extr, Normal tone, Normal affect Lymphatics: No axilla or inguinal lymphadenopathy - Studies Laboratory Data (last 24 hrs) 06/08/19 09:30: WBC 6.8 D, Hgb 14.9, Hct 43.1, Plt Count 227 06/08/19 08:30: Sodium 143, Potassium 4.1, BUN 15, Creatinine 1.31 H, Glucose 97 06/08/19 08:20: Sodium Cancelled, Potassium Cancelled, BUN Cancelled, Creatinine Cancelled, Glucose Cancelled Assessment and Plan - Problems (Diagnosis) (1) Right ureteral calculus Current Visit: Yes Status: Acute (2) Hydronephrosis, right Current Visit: Yes Status: Acute (3) Right flank pain Current Visit: Yes Status: Acute - Plan -Admit to floor for observation -keep NPO, continue IV fluids -IV pain control -Dr. Ordonez, urology consulted. Patient pending cystoscopy/stent placement -continue IV antibiotics -monitor via labs DVT prophylaxis: Hold for possible surgical intervention GI prophylaxis: none Diet: NPO past midnight Disposition: Pending symptomatic improvement along with surgical intervention with urology. Anticipate discharge home after surgical intervention if clinically doing well. Discharge Plan: Home Plan to discharge in: 24 Hours - Advance Directives Does patient have a Living Will: No Does patient have a Durable POA for Healthcare: No Time Spent Managing Pts Care (In Minutes): 55
--- NOTE | 2019-06-08 13:40 | CON ---
History Of Present Illness: This is a pleasant 39-year-old gentleman, had his first episode of stones, presented with right flank pain to the right lower quadrant 3 days ago to the ER, was diagnosed with kidney stones, sent home and given medicine to help pass it. Apparently, the pain has gotten worse. Pain medications has not helped him. 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 Re-scan showed the stone to be in the same position by the right UVJ, possible some edema around it. Options for this patient are cystoscopy, ureteroscopy, stone extraction, stent placement versus ESWL in the morning, and the ESWL is the most noninvasive. All the general information, alternatives and risks were given, wishes to proceed. Allergies: MANGOES AND VICODIN. Past Medical History: Ulcerative colitis, sciatica, PTSD, and chronic back pain. Past Surgical History: Cholecystectomy. Immunizations: All up to date. Social History: No smoking. Review of Systems: 10 point review of systems otherwise normal. Physical Examination: Vital Signs: Pulse 73, respirations 20, BP 158/86. HEENT: Atraumatic and normocephalic. General: The patient is in no acute distress. Lungs: Clear. Heart: S1, S2. Abdomen: Soft, nontender. Extremities: Full range of motion. CT scan showed 3-4 mm right distal ureteral calcification by the UVJ, position had not changed since 3 days ago with some right perinephric fat stranding and hydroureter on the right. Assessment: 3-4 mm right UVJ stone. Plan: ESWL plus or minus stent. In the morning, all the general information, alternatives, and risks were given. The patient wishes to proceed. Patient will remain n.p.o. past midnight. ADD. stone not visible on KUB and patient still in lots of pain, will change to ureteroscopy and stone extraction , stent placement PB/MODL Voice ID: [id number] Report ID: [id number] [place]
--- NOTE | 2019-06-08 15:41 | RAD REPORT ---
EXAM DESCRIPTION: RAD - Abdomen 1 View (KUB) - 06/08/2019 3:14 pm CLINICAL HISTORY: check stone r uvj COMPARISON: Stone Protocol dated 06/08/2019 FINDINGS: The obstructing distal ureteral calculus is not confirmed on KUB examination. There is a d ominant calcification in the lower right pelvis that is believed to correspond to a phlebolith. There is a left lower pelvic phlebolith as well.
[2019-06-08] MEDS: HYDROMORPHONE HCL 1 MG/ML INJ IV PRN ×2 (16:46→20:21)
[2019-06-08] MEDS: DOCUSATE NA 100 MG CAP PO SCH (20:22)
[2019-06-08] MEDS ORDERED: HYDROMORPHONE HCL 0.5 MG/0.5 ML INJ IV PRN (22:03)
[2019-06-09] MEDS: MORPHINE 4 MG/ML SYR IV PRN ×2 (03:34→08:33)
[2019-06-09] MEDS: NA CHLORIDE 0.9% 1,000 ML IV SCH (03:35)
[2019-06-09 04:56] LABS: Basophils % 0.4 % (0-1.3); Hematocrit 42.2 % (39.6-49.0); Lymphocytes % 11.6 % (15.3-44.8); MPV 8.4 fL (7.6-11.3)
[2019-06-09 05:09] LABS: Albumin 3.8 g/dL (3.4-5.0); Bilirubin Total 0.7 mg/dL (0.2-1.0); Magnesium 2.3 mg/dL (1.8-2.4); Phosphorus 3.1 mg/dL (2.5-4.9); Potassium 4.2 mmol/L (3.5-5.1); Protein, Total 7.6 g/dL (6.4-8.2)
[2019-06-09] MEDS ORDERED: HYDROMORPHONE HCL 1 MG/ML INJ IV ONE (05:18)
[2019-06-09] MEDS ORDERED: PANTOPRAZOLE 40MG TABLET PO SCH (06:30)
[2019-06-09] MEDS: DOCUSATE NA 100 MG CAP PO SCH (08:37)
[2019-06-09] MEDS ORDERED: BUPROPION HCL XL 150 MG TAB PO SCH (09:00)
[2019-06-09] MEDS ORDERED: LURASIDONE HCL 20 MG PO SCH (09:00)
[2019-06-09] MEDS ORDERED: CEFTRIAXONE/SWI 1gm 1 GM/10 ML SYR IV SCH (09:00)
[2019-06-09] MEDS ORDERED: CEFTRIAXONE 1 GM/NS 50 ML 1 GM/50 ML BAG IV SCH (09:00)
--- NOTE | 2019-06-09 10:52 | P.SSS ---
Patient History Date of Service: 06/09/19 Reason for admission: Right flank pain History of Present Illness: This is a 39-year-old male with past medical history of PTSD, ulcerative colitis admitted for right flank pain. Per patient, he started with the right flank pain, sharp, radiating to lower quadrant about 4 days ago that has been progressively worsening. This pain is associated with nausea and vomiting along with difficulty urinating. Rates it 7-8 out of 10 at its worst. There are no alleviating or exacerbating factors. Patient was seen previously around 4 days ago in the ER for similar complaints. Patient states that it has not improved and in fact the pain has worsened. He denies any fevers, chills, chest pain, shortness of breath, diarrhea/constipation, lightheadedness, dizziness, headache or vision changes. Since the pain was not improving and in fact was worsening, he came to the emergency room. In the ER, his blood pressure was 90/61, heart rate is 73, respirations of 20, afebrile and satting 97% on room air. His BMI is 31.78. his labs were fairly unremarkable. His CT scan was with 3-4 mm distal right ureteral calculi at the UVJ which is unchanged from prior imaging 4 days ago. Today the imaging shows worsening right hydronephrosis and a new perinephric stranding. In the ER, he was given IV pain medications including morphine and Toradol along with Rocephin and Zofran. At the time of my exam, he was alert oriented x3, in mild to moderate distress due to pain and hemodynamically stable. Allergies siena Allergy (Severe, Verified 06/08/19 13:50) Shortness of breath acetaminophen [From Vicodin] Allergy (Verified 06/08/19 13:50) Unknown hydrocodone [From Vicodin] Allergy (Verified 06/08/19 13:50) Unknown Home medications list reviewed: Yes Home Medications: Acetaminophen with Codeine [Tylenol with Codeine #3 Tablet] 1 tab PO Q6HP PRN Bupropion HCl [Wellbutrin Xl] 150 mg PO BID 06/08/19 Cyclobenzaprine HCl 10 mg PO BID 06/08/19 Etodolac 400 mg PO DAILY 06/08/19 Gabapentin 600 mg PO BEDTIME 06/08/19 Lurasidone HCl [Latuda] 20 mg PO BID 06/08/19 Omeprazole 1 tab PO DAILY 06/08/19 Tamsulosin HCl 1 tab PO DAILY 06/08/19 - Past Medical/Surgical History Has patient received pneumonia vaccine in the past: No Diabetic: No -: Ulcerative Colitis -: Sciatica -: PTSD -: Chronic back Pain -: Degenerative disk -: Cholesystectomy -: Tonsillectomy - Family History Father -: Cancer Notes: lung cancer Mother -: Cancer Notes: Breast Cancer - Social History Smoking Status: Former smoker Alcohol use: Yes CD- Drugs: No Caffeine use: Yes Place of Residence: Home Review of Systems 10-point ROS is otherwise unremarkable Physical Examination - Vital Signs Temperature: 99.5 F Blood Pressure: 171/91 Pulse: 80 Respirations: 14 Pulse Ox (%): 94 - Physical Exam General: Alert, Oriented x3, Mild distress HEENT: Atraumatic, PERRLA, Mucous membr. moist/pink, EOMI, Sclerae nonicteric Neck: Supple, 2+ carotid pulse no bruit, No LAD, Without JVD or thyroid abnormality Respiratory: Clear to auscultation bilaterally, Normal air movement Cardiovascular: Regular rate/rhythm, Normal S1 S2 Gastrointestinal: Normal bowel sounds, No tenderness Musculoskeletal: No tenderness Integumentary: No rashes Neurological: Normal gait, Normal speech, Normal strength at 5/5 x4 extr, Normal tone, Normal affect Lymphatics: No axilla or inguinal lymphadenopathy - Diagnosis (Problem(s)) (1) Right ureteral calculus Current Visit: Yes Status: Acute (2) Hydronephrosis, right Current Visit: Yes Status: Acute (3) Right flank pain Current Visit: Yes Status: Acute Treatment Summary: Patient was admitted to the floor for observation. He was kept NPO, given IV fluids. He underwent a with Dr. Ordonez, urology. He was also provided IV antibiotics prior to procedure. He tolerated the procedure well. His pain and symptoms improved postprocedure. He was then cleared for discharge by urology. He will follow up with urology as an outpatient in 1 week. His diagnoses/treatment plan was explained to him, all questions were answered and he verbalized understanding. He was then discharged home a safe and stable manner. - Disposition Discharge Date: 06/09/19 Disposition: ROUTINE DISCHARGE Condition: GOOD Consultations: Dr. Ordonez, urology Patient Discharge Instructions: Please follow up with Dr. Ordonez in 1 week. Please return to the emergency room for worsening symptoms. Diet: Regular Activity: Ad marielle Time Spent Managing Pts Care (In Minutes): 55
[2019-06-09] MEDS ORDERED: PROPOFOL 200 MG/20 ML VIAL IV ONE ×2 (11:40→11:53)
[2019-06-09] MEDS ORDERED: FENTANYL CITR 100 MCG/2 ML ONE (11:40)
[2019-06-09] MEDS ORDERED: LIDOCAINE 1% MPF 5 ML VIAL ONE (11:41)
[2019-06-09] MEDS ORDERED: MIDAZOLAM HCL 2 MG/2 ML INJ ONE (11:41)
[2019-06-09] MEDS ORDERED: ONDANSETRON 4 MG/2 ML VIAL ONE (12:15)
[2019-06-09] MEDS ORDERED: Mastisol Adhesive Liq ONE (12:16)
[2019-06-09] MEDS ORDERED: KETOROLAC 30 MG/ML INJ ONE (12:21)
[2019-06-09] MEDS: Ringers Lactate 1,000 ML IV ONE ×2 (12:29)
--- NOTE | 2019-06-09 12:33 | RAD REPORT ---
EXAM DESCRIPTION: RAD - Urography Retrograde - 06/09/2019 12:27 pm FINDINGS: There were 12 fluoroscopic KUB images obtained during assisted placement of a right ureter al stent. No suspicious or unexpected findings. Fluoro time was 1 minutes 6 seconds.
[2019-06-09 13:06] VITALS: O2SAT 98
[2019-06-09 16:00] VITALS: BP 171/91; TEMP 99.5
[2019-06-09] MEDS ORDERED: GABAPENTIN 300 MG CAP PO SCH (21:00)
== END 2019-06-09 16:39 | disposition home or self-care (01) ==
LOC: ER 08:17 → ERHOLD 10:02 → 2ND 11:28
PROVIDERS: ADMIT Family Medicine; ATTEND Family Medicine
PROC: 0TC68ZZ Extirpation of Matter from Right Ureter, Via Natural or Artificial Opening Endoscopic (ICD-10-PCS; 2019-06-09)
PROC: 0T768DZ Dilation of Right Ureter with Intraluminal Device, Via Natural or Artificial Opening Endoscopic (ICD-10-PCS; principal; 2019-06-09 12:00)
DX: N13.2 Hydronephrosis with renal and ureteral calculous obstruction (principal); F43.10 Post-traumatic stress disorder, unspecified; K51.90 Ulcerative colitis, unspecified, without complications; Z87.891 Personal history of nicotine dependence
CPT/HCPCS: 96365; 85025 ×2; 80048; 36415; 83735; 84100; 88300; 81003; 80053; 82360; 76377; 74176; 74018; 74420; 94760; 96375; 99284; 52320; 52332; J2704 ×2; J2250; J3010; J3475; J2270 ×2; J1170 ×6; J0696 ×2; J7030 ×3; J2405 ×2; G0378 ×2

== ENCOUNTER 2019-06-11 08:51 | Emergency (ER) | payer BC ==
[2019-06-11] MEDS ORDERED: MORPHINE 4 MG/ML SYR ONE (09:27)
[2019-06-11] MEDS ORDERED: NA CHLORIDE 0.9% 1,000 ML ONE (09:27)
[2019-06-11 09:47] LABS: Absolute Lymphocytes (CBC) 1.2 K/uL (0.7-4.9); Hematocrit 44.1 % (39.6-49.0); Lymphocytes % 26.7 % (15.3-44.8); MPV 8.2 fL (7.6-11.3); RBC Red Blood Cell Count 5.18 M/uL (4.33-5.43)
[2019-06-11 10:08] LABS: ALT/SGPT 32 U/L (12-78); AST/SGOT 15 U/L (15-37); Albumin 3.6 g/dL (3.4-5.0); Alkaline Phosphatase 59 U/L (45-117); BUN Blood Urea Nitrogen 13 mg/dL (7-18); Bicarbonate 26 mmol/L (21-32); Bilirubin Direct < 0.1 mg/dL (0-0.2); Bilirubin Total 0.3 mg/dL (0.2-1.0); Glucose Level 97 mg/dL (74-106); Lipase 62 U/L (73-393); Potassium 3.9 mmol/L (3.5-5.1); Protein, Total 7.4 g/dL (6.4-8.2); Sodium Level 143 mmol/L (136-145)
[2019-06-11 10:25] LABS: Urine Bacteria <20 /HPF (NONE SEEN); Urine RBC >50 /HPF (NONE SEEN)
[2019-06-11 10:26] LABS: Urine Culture Reflex Order REFLEXED
[2019-06-11 10:29] LABS: Urine Blood 3+ (NEG); Urine Glucose NEGATIVE (NEG); Urine Protein 3+ (NEG); Urine pH 5.5 (5.0-7.0)
--- NOTE | 2019-06-11 10:51 | RAD REPORT ---
EXAM DESCRIPTION: CT - Stone Protocol - 06/11/2019 10:39 am CLINICAL HISTORY: Flank pain. FLANK PAIN COMPARISON: Stone Protocol dated 06/08/2019 TECHNIQUE: Axial images were obtained without oral or IV contrast. Lack of contrast limits solid org an and vascular assessment. The [id number] spans the entirety of the system partially obscuring uppermost abdomen and lung bases. Coronal reformatted images were obtained and reviewed. All CT scans are performed using dose optimization technique as appropriate and may include automated exposure control or mA/KV adjustment according to patient size. FINDINGS: Linear subsegmental atelectasis is present in both lung bases. Cholecystectomy clips. Imaged portions of the liver and spleen show no suspicious findings on non-contrast imaging. The panc reas and adrenal glands are normal. No pathologic lymphadenopathy in the abdomen or pelvis. A right double-J stent is in place. Proximal aspect of the stent is in the superior calyx of the righ t kidney. The distal aspect is in the urinary bladder. No calculus is seen along the course of the st ent. Tiny punctate calculi seen in the inferior calyx left kidney. No bowel obstruction, free air, free fluid or abscess. Normal appendix noted. No significant bony abnormality. Small fat containing bilateral inguinal hernias. IMPRESSION: Right-sided double-J stent is in place in expected positioning. No calculus is seen nancy g the course of the stent.
--- NOTE | 2019-06-11 12:09 | ER ---
Nurse's Notes [facility] Name: Mack Duffy Age: 39 yrs Sex: Male : 1980 Arrival Date: 06/11/2019 Time: 08:53 Bed 15 Private MD: Diagnosis: Postoperative pain Presentation: 06/11 09:03 Presenting complaint: Patient states: Kidney stone removed and stent placed on Saturday, severe right flank pain began upon waking. Transition of care: patient was not received from another setting of care. Onset of symptoms was June 11, 2019. Risk Assessment: Do you want to hurt yourself or someone else? Patient reports no desire to harm self or others. Initial Sepsis Screen: Does the patient meet any 2 criteria? No. Patient's initial sepsis screen is negative. Does the patient have a suspected source of infection? No. Patient's initial sepsis screen is negative. Care prior to arrival: None. 09:03 Method Of Arrival: Ambulatory jl7 09:03 Acuity: ARIANA 3 jl7 Triage Assessment: 09:08 General: Appears in no apparent distress. uncomfortable, Behavior is calm, cooperative, jl7 appropriate for age. Pain: Complains of pain in posterior aspect of right lateral abdomen Pain radiates to suprapubic area, anterior aspect of right lateral abdomen and right lower quadrant Pain currently is 10 out of 10 on a pain scale. Quality of pain is described as sharp, Pain began suddenly, Is continuous. EENT: No signs and/or symptoms were reported regarding the EENT system. Neuro: Level of Consciousness is awake, alert, obeys commands, Oriented to person, place, time, situation. Cardiovascular: Patient's skin is warm and dry. Respiratory: Airway is patent Respiratory effort is even, unlabored, Respiratory pattern is regular, symmetrical. GI: Abdomen is flat, non-distended. : Reports Kidney stent placement on Saturday. Derm: Skin is pink, warm \T\ dry. Historical: - Allergies: 09: mangos; jl7 09:08 Vicodin; jl7 - Home Meds: : bupropion HCl 150 mg oral Tb24 [Active]; cyclobenzaprine 10 mg Oral tab 1 tab 2 times jl7 per day [Active]; etodolac 300 mg Oral cap 1 cap 2 times per day [Active]; gabapentin 600 mg oral tab [Active]; tamsulosin 0.4 mg oral cp24 [Active]; Tylenol #3 Oral [Active]; - PMHx: 09:08 chronic back pain; PTSD; sciatica; ulcertive colitis; Kidney stones; jl7 - PSHx: 09:08 Cholecystectomy; Kidney stents; jl7 - Immunization history:: Adult Immunizations unknown. - Social history:: Smoking status: Patient/guardian denies using tobacco. - Ebola Screening: : No symptoms or risks identified at this time. Screenin:47 Abuse screen: Denies threats or abuse. Denies injuries from another. Nutritional jl7 screening: No deficits noted. Tuberculosis screening: No symptoms or risk factors identified. Fall Risk IV access (20 points). Total Marie Fall Scale indicates No Risk (0-24 pts). Assessment: 09:10 General: See triage assessment. jl7 10:30 Reassessment: Patient appears in no apparent distress at this time. Patient and/or jl7 family updated on plan of care and expected duration. Pain level reassessed. Patient is alert, oriented x 3, equal unlabored respirations, skin warm/dry/pink. Patient states feeling better. Vital Signs: 09:08 BP 130 / 86; Pulse 71; Resp 16 S; Temp 98.6(O); Pulse Ox 100% on R/A; Weight 124.74 kg jl7 (R); Pain 10/10; 10:58 BP 146 / 93; Pulse 58; Resp 16 S; Pulse Ox 96% on R/A; jl7 ED Course: 08:53 Patient arrived in ED. rg4 08:58 Kamla Prado RN is Primary Nurse. jl7 09:05 Triage completed. jl7 09:08 Arm band placed on right wrist. jl7 09:14 Britton Brandt NP is PHCP. pm1 09:14 Jos eAlejandro Portillo MD is Attending Physician. pm1 09:47 Patient has correct armband on for positive identification. Placed in gown. Bed in low jl7 position. Call light in reach. Side rails up X 1. Pulse ox on. NIBP on. 09:47 Initial lab(s) drawn, by me, sent to lab. Urine collected: clean catch specimen, kirby jl7 colored, blood tinged. Inserted saline lock: 20 gauge in right forearm, using aseptic technique. Blood collected. 10:40 CT Stone Protocol In Process Unspecified. EDMS 12:07 Reagan Ordonez MD is Referral Physician. pm1 12:30 No provider procedures requiring assistance completed. IV discontinued, intact, jl7 bleeding controlled, No redness/swelling at site. Pressure dressing applied. Administered Medications: 09:46 Drug: morphine 4 mg Route: IVP; Site: right forearm; jl7 10:30 Follow up: Response: No adverse reaction; Pain is decreased jl7 09:46 Drug: NS 0.9% 1000 ml Route: IV; Rate: 1 bolus; Site: right forearm; jl7 10:39 Follow up: Response: No adverse reaction; IV Intake: 1000ml jl7 Intake: 10:39 IV: 1000ml; Total: 1000ml. jl7 Outcome: 12:08 Discharge ordered by . pm1 12:30 Discharged to home ambulatory, with family. jl7 12:30 Condition: stable 12:30 Discharge instructions given to patient, family, Instructed on discharge instructions, follow up and referral plans. medication usage, Demonstrated understanding of instructions, follow-up care, medications, Prescriptions given X 1. 12:37 Patient left the ED. jl7 Signatures: Dispatcher [employer] EDMS Britton Brandt NP TIRE BALANCER pm1 Allison Main rg4 Kamla Prado RN RN jl7
--- NOTE | 2019-06-11 12:09 | EDPHYS ---
Physician Documentation [facility] Name: Mack Duffy Age: 39 yrs Sex: Male : 1980 Arrival Date: 06/11/2019 Time: 08:53 Bed 15 Private MD: ED Physician Jose Alejandro Portillo HPI: 06/11 09:17 This 39 yrs old Male presents to ER via Ambulatory with complaints of pm1 Abdominal Pain, Post Surgical Pain. 09:17 The patient complains of pain in the right low back. The pain radiates to the right pm1 lower quadrant. Onset: The symptoms/episode began/occurred this morning. Modifying factors: The symptoms are alleviated by nothing. the symptoms are aggravated by movement. Associated signs and symptoms: Pertinent positives: hematuria, Pertinent negatives: dysuria, fever, nausea, vomiting. Severity of pain: in the emergency department the pain is actually worse. The patient has been recently been admitted at [facility], Patient with stent placement for right ureteral calculous by Dr. Ordonez. Historical: - Allergies: 09:08 mangos; jl7 09:08 Vicodin; jl7 - Home Meds: 09:08 bupropion HCl 150 mg oral Tb24 [Active]; cyclobenzaprine 10 mg Oral tab 1 tab 2 times jl7 per day [Active]; etodolac 300 mg Oral cap 1 cap 2 times per day [Active]; gabapentin 600 mg oral tab [Active]; tamsulosin 0.4 mg oral cp24 [Active]; Tylenol #3 Oral [Active]; - PMHx: 09:08 chronic back pain; PTSD; sciatica; ulcertive colitis; Kidney stones; jl7 - PSHx: 09:08 Cholecystectomy; Kidney stents; jl7 - Immunization history:: Adult Immunizations unknown. - Social history:: Smoking status: Patient/guardian denies using tobacco. - Ebola Screening: : No symptoms or risks identified at this time. ROS: 09:17 Constitutional: Negative for fever, chills, and weight loss, Eyes: Negative for injury, pm1 pain, redness, and discharge, ENT: Negative for injury, pain, and discharge, Neck: Negative for injury, pain, and swelling, Cardiovascular: Negative for chest pain, palpitations, and edema, Respiratory: Negative for shortness of breath, cough, wheezing, and pleuritic chest pain, Abdomen/GI: Negative for abdominal pain, nausea, vomiting, diarrhea, and constipation. 09:17 MS/Extremity: Negative for injury and deformity, Skin: Negative for injury, rash, and discoloration, Neuro: Negative for headache, weakness, numbness, tingling, and seizure. 09:17 Back: Positive for flank pain, on the right. 09:17 : Positive for flank pain, hematuria, Negative for burning with urination, penile discharge. Exam: 09:17 Constitutional: This is a well developed, well nourished patient who is awake, alert, pm1 and in no acute distress. Head/Face: Normocephalic, atraumatic. Eyes: Pupils equal round and reactive to light, extra-ocular motions intact. Lids and lashes normal. Conjunctiva and sclera are non-icteric and not injected. Cornea within normal limits. Periorbital areas with no swelling, redness, or edema. ENT: Nares patent. No nasal discharge, no septal abnormalities noted. Tympanic membranes are normal and external auditory canals are clear. Oropharynx with no redness, swelling, or masses, exudates, or evidence of obstruction, uvula midline. Mucous membranes moist. Neck: Trachea midline, no thyromegaly or masses palpated, and no cervical lymphadenopathy. Supple, full range of motion without nuchal rigidity, or vertebral point tenderness. No Meningismus. Chest/axilla: Normal chest wall appearance and motion. Nontender with no deformity. No lesions are appreciated. Cardiovascular: Regular rate and rhythm with a normal S1 and S2. No gallops, murmurs, or rubs. Normal PMI, no JVD. No pulse deficits. Respiratory: Lungs have equal breath sounds bilaterally, clear to auscultation and percussion. No rales, rhonchi or wheezes noted. No increased work of breathing, no retractions or nasal flaring. Abdomen/GI: Soft, non-tender, with normal bowel sounds. No distension or tympany. No guarding or rebound. No evidence of tenderness throughout. 09:17 Skin: Warm, dry with normal turgor. Normal color with no rashes, no lesions, and no evidence of cellulitis. MS/ Extremity: Pulses equal, no cyanosis. Neurovascular intact. Full, normal range of motion. 09:17 Back: pain, that is mild, of the right low back, normal spinal alignment noted. 09:17 Neuro: Orientation: is normal, Motor: is normal, moves all fours. Vital Signs: 09:08 BP 130 / 86; Pulse 71; Resp 16 S; Temp 98.6(O); Pulse Ox 100% on R/A; Weight 124.74 kg jl7 (R); Pain 10/10; 10:58 BP 146 / 93; Pulse 58; Resp 16 S; Pulse Ox 96% on R/A; jl7 MDM: 09:14 Patient medically screened. pm1 11:09 Data reviewed: vital signs. Data interpreted: Pulse oximetry: on room air is 96 %. pm1 Interpretation: normal. 12:03 Physician consultation: Reagan Ordonez MD was called at 12:03, was contacted at 12:03, pm1 regarding patient's condition, His impression is stent irritation and patient can follow up in the office as planned on Saturday for stent removal. Educate patient on avoiding drinks that may cause bladder spasm. 12:03 ED course: Patient reports that he has about 8 Tylenol #3 pills remaining and will not pm1 last until Saturday. Reports that tramadol works better than Tylenol #3. Therefore I will discharge the patient home with Tramadol. 06/11 09:17 Order name: Basic Metabolic Panel; Complete Time: 10:19 pm1 06/11 09:17 Order name: CBC with Diff; Complete Time: 10:19 pm1 06/11 09:17 Order name: Hepatic Function; Complete Time: 10:19 pm1 06/11 09:17 Order name: Lipase; Complete Time: 10:19 pm06/11 09:17 Order name: Urine Microscopic Only; Complete Time: 10:54 pm1 06/11 09:17 Order name: IV Saline Lock; Complete Time: 09:46 pm06/11 09:17 Order name: Labs collected and sent; Complete Time: :46 pm06/11 09:17 Order name: Urine Dipstick-Ancillary (obtain specimen); Complete Time: 09: pm06/11 10:11 Order name: Urine Dipstick--Ancillary (enter results); Complete Time: 10:54 bd 06/11 10:19 Order name: CT Stone Protocol; Complete Time: 11:01 pm1 06/11 10:29 Order name: Urine Culture EDCT Administered Medications: 09:46 Drug: morphine 4 mg Route: IVP; Site: right forearm; jl7 10:30 Follow up: Response: No adverse reaction; Pain is decreased jl7 09:46 Drug: NS 0.9% 1000 ml Route: IV; Rate: 1 bolus; Site: right forearm; jl7 10:39 Follow up: Response: No adverse reaction; IV Intake: 1000ml jl7 Disposition: 16:21 Co-signature as Attending Physician, Jose Alejandro Portillo MD. rn Disposition: 06/11/19 12:08 Discharged to Home. Impression: Postoperative pain. - Condition is Stable. - Discharge Instructions: Ureteral Stent Implantation. - Prescriptions for Tramadol 50 mg Oral Tablet - take 1 tablet by ORAL route every 8 hours As needed as needed; 20 tablet. - Medication Reconciliation Form, Thank You Letter, Antibiotic Education, Prescription Opioid Use form. - Follow up: Emergency Department; When: As needed; Reason: Worsening of condition. Follow up: Reagan Ordonez MD; When: 4 Days; Reason: Recheck today's complaints, Continuance of care, Re-evaluation by your physician. - Problem is new. - Symptoms have improved. Signatures: Dispatcher [employer] EDCT Jose Alejandro Portillo MD MD rn Marinas, Patrick, [employer] pm1 Kamla Prado RN RN jl7 Corrections: (The following items were deleted from the chart) 09:51 09:45 Urinalysis W/Microscopic ordered. [facility] 12:37 12:08 06/11/2019 12:08 Discharged to Home. Impression: Postoperative pain. Condition is jl7 Stable. Forms are Medication Reconciliation Form, Thank You Letter, Antibiotic Education, Prescription Opioid Use. Follow up: Emergency Department; When: As needed; Reason: Worsening of condition. Follow up: Reagan Ordonez; When: 4 Days; Reason: Recheck today's complaints, Continuance of care, Re-evaluation by your physician. Problem is new. Symptoms have improved. pm1
[2019-06-11 12:46] VITALS: TEMP 98.6
[2019-06-11 12:47] VITALS: BP 146/93; O2SAT 96
== END 2019-06-11 12:37 | disposition home or self-care (01) ==
LOC: ER 08:51
DX: G89.18 Other acute postprocedural pain (principal); T85.848A Pain due to other internal prosthetic devices, implants and grafts, initial encounter; F43.10 Post-traumatic stress disorder, unspecified; Z88.5 Allergy status to narcotic agent; Z87.442 Personal history of urinary calculi; Z91.018 Allergy to other foods
CPT/HCPCS: 85025; 87086; 80048; 36415; 80076; 83690; 76377; 74176; 96374; 99284; J7030; 81003; 81015; 87088

== ENCOUNTER 2020-03-01 19:14 | Emergency (ER) | payer BC, OTHER ==
[2020-03-01] MEDS ORDERED: HYDROCODONE/APAP 10/325 TAB ONE (19:57)
--- NOTE | 2020-03-01 20:11 | RAD REPORT ---
EXAM DESCRIPTION: RAD - Hand Right 3 View - 03/01/2020 7:55 pm CLINICAL HISTORY: PAIN COMPARISON: No comparisons FINDINGS: Soft tissue swelling is present affecting the second digit. No fracture or foreign body se en.
[2020-03-01] MEDS ORDERED: KETOROLAC 30 MG/ML INJ ONE (20:19)
[2020-03-01 21:44] VITALS: BP 141/89; TEMP 99.1; O2SAT 100
--- NOTE | 2020-03-07 13:45 | EDPHYS ---
Physician Documentation [facility] Name: Mack Duffy Age: 40 yrs Sex: Male : 1980 Arrival Date: 03/01/2020 Time: 19:16 Bed 11 Private MD: ED Physician Finesse Nance HPI: 03/01 20:40 This 40 yrs old Male presents to ER via Ambulatory with complaints of Finger ma2 Injury. 20:40 Mechanism of injury: Crush injury:. Mechanism of injury: Crush injury: put his right ma2 index finger accidently in the food chopper, got full thickness . 20:50 Onset: The symptoms/episode began/occurred gradually, 1 day(s) ago. ma2 20:53 Mechanism of injury: Crush injury: he has full thickness cut that involve lateral ma2 aspect of index at distal digit . The patient has not experienced similar symptoms in the past. Historical: - Allergies: 19:30 mangos; mg2 19:30 Vicodin; mg2 - PMHx: 19:30 chronic back pain; Kidney stones; PTSD; sciatica; ulcertive colitis; mg2 - PSHx: 19:30 Tonsillectomy; kidney stones stents; mg2 - Immunization history:: Flu vaccine is not up to date. - Social history:: Smoking status: Patient denies any tobacco usage or history of. Patient/guardian denies using alcohol, street drugs, IV drugs, Patient/guardian denies using. - Family history:: not pertinent. ROS: 20:50 Constitutional: Negative for fever, chills, and weight loss. ma2 20:50 All other systems are negative. Exam: 20:53 Constitutional: This is a well developed, well nourished patient who is awake, alert, ma2 and in no acute distress. Head/Face: Normocephalic, atraumatic. Eyes: Pupils equal round and reactive to light, extra-ocular motions intact. Lids and lashes normal. Conjunctiva and sclera are non-icteric and not injected. Cornea within normal limits. Periorbital areas with no swelling, redness, or edema. ENT: Nares patent. No nasal discharge, no septal abnormalities noted. Tympanic membranes are normal and external auditory canals are clear. Oropharynx with no redness, swelling, or masses, exudates, or evidence of obstruction, uvula midline. Mucous membranes moist. Neck: Trachea midline, no thyromegaly or masses palpated, and no cervical lymphadenopathy. Supple, full range of motion without nuchal rigidity, or vertebral point tenderness. No Meningismus. Chest/axilla: Normal chest wall appearance and motion. Nontender with no deformity. No lesions are appreciated. Cardiovascular: Regular rate and rhythm with a normal S1 and S2. No gallops, murmurs, or rubs. Normal PMI, no JVD. No pulse deficits. Respiratory: Lungs have equal breath sounds bilaterally, clear to auscultation and percussion. No rales, rhonchi or wheezes noted. No increased work of breathing, no retractions or nasal flaring. Abdomen/GI: Soft, non-tender, with normal bowel sounds. No distension or tympany. No guarding or rebound. No evidence of tenderness throughout. Skin: Warm, dry with normal turgor. Normal color with no rashes, no lesions, and no evidence of cellulitis. MS/ Extremity: full thinkness abrasion at right distal index finger 0.5 cm wide, it is full thinkness, bleeding is controlled with pressure, not deep to the bone, total skin loss, cap refill is brisk and <2 sec. Pulses equal, no cyanosis. Neurovascular intact. Full, normal range of motion. Neuro: Awake and alert, GCS 15, oriented to person, place, time, and situation. Cranial nerves II-XII grossly intact. Motor strength 5/5 in all extremities. Sensory grossly intact. Cerebellar exam normal. Normal gait. Vital Signs: 19:27 BP 141 / 89; Pulse 84; Resp 18; Temp 99.1; Pulse Ox 100% ; Weight 124.74 kg; Height 6 mg2 ft. 6 in. (198.12 cm); Pain 9/10; 19:27 Body Mass Index 31.78 (124.74 kg, 198.12 cm) mg2 MDM: 19:35 Patient medically screened. ma2 20:53 Differential diagnosis: laceration, full thinkess, possible foreign body unlikley ma2 fracture. Data reviewed: vital signs, nurses notes. Counseling: I had a detailed discussion with the patient and/or guardian regarding: the historical points, exam findings, and any diagnostic results supporting the discharge/admit diagnosis, the presence of at least one elevated blood pressure reading (>120/80) during this emergency department visit, the need for outpatient follow up. Response to treatment: the patient's symptoms have markedly improved after treatment. 03/01 19:40 Order name: Hand Right 3 View XRAY; Complete Time: 20:29 ma2 Administered Medications: 19:53 Drug: [place] 10 mg-325 mg 1 tabs Route: PO; sg 20:17 Follow up: Response: No adverse reaction; Pain is unchanged, physician notified; RASS: sg Restless (+1) 20:15 Drug: TORadol 60 mg Route: IM; Site: left deltoid; sg 21:20 Follow up: Response: No adverse reaction; Pain is decreased sg Disposition: 03/01/20 20:58 Discharged to Home. Impression: Laceration with foreign body of right index finger without damage to nail. - Condition is Stable. - Discharge Instructions: Laceration Care, Adult, Jrci-op-Oafg. - Prescriptions for Augmentin 875- 125 mg Oral Tablet - take 1 tablet by ORAL route every 12 hours for 10 days; 20 tablet. Diclofenac Sodium 75 mg Oral Tablet Sustained Release - take 1 tablet by ORAL route 2 times per day; 30 tablet. - Medication Reconciliation Form, Thank You Letter, Antibiotic Education, Prescription Opioid Use form. - Follow up: Private Physician; When: Tomorrow; Reason: Continuance of care. - Notes: change dressing daily. Signatures: Dispatcher [employer] EDSlava Boone RN RN sg Finesse Nance MD MD ma2 Ozzie Madison RN RN mg2 Corrections: (The following items were deleted from the chart) 21:39 20:58 03/01/2020 20:58 Discharged to Home. Impression: Laceration with foreign body of sg right index finger without damage to nail. Condition is Stable. Prescriptions for Augmentin 875-125 mg Oral Tablet - take 1 tablet by ORAL route every 12 hours for 10 days; 20 tablet, Diclofenac Sodium 75 mg Oral Tablet Sustained Release - take 1 tablet by ORAL route 2 times per day; 30 tablet. and Forms are Medication Reconciliation Form, Thank You Letter, Antibiotic Education, Prescription Opioid Use. Follow up: Private Physician; When: Tomorrow; Reason: Continuance of care. [facility]
--- NOTE | 2020-03-07 13:45 | ER ---
Nurse's Notes [facility] Name: Mack Duffy Age: 40 yrs Sex: Male : 1980 Arrival Date: 03/01/2020 Time: 19:16 Bed 11 Private MD: Diagnosis: Laceration with foreign body of right index finger without damage to nail Presentation: 03/01 19:27 Chief complaint: Patient states: i cut my right 2nd finger with a knife few min [employer] mg2 wjhhile cooking dinner. Coronavirus screen: Proceed with normal triage. Patient denies a cough. Patient denies shortness of breath or difficulty breathing. Patient denies measured and/or subjective temperature greater than 100.4F prior to today's visit. Patient denies travel on a cruise ship or to a country the [facility] currently lists as an affected area. Patient denies contact with known and/or suspected case of COVID-19. Ebola Screen: No symptoms or risks identified at this time. Initial Sepsis Screen: Does the patient meet any 2 criteria? No. Patient's initial sepsis screen is negative. Does the patient have a suspected source of infection? No. Patient's initial sepsis screen is negative. Risk Assessment: Do you want to hurt yourself or someone else? Patient reports no desire to harm self or others. Onset of symptoms was March 01, 2020. 19:27 Method Of Arrival: Amb[place] [facility] [place] 19:27 Acuity: ARIANA 4 mg2 Triage Assessment: 19:50 Injury Description: Avulsion sustained to dorsal aspect of middle phalanx of right sg index finger is partial was sustained 30-60 minutes ago. Historical: - Allergies: 19:30 mangos; mg2 19:30 Vicodin; mg2 - PMHx: 19:30 chronic back pain; Kidney stones; PTSD; sciatica; ulcertive colitis; mg2 - PSHx: 19:30 Tonsillectomy; kidney stones stents; mg2 - Immunization history:: Flu vaccine is not up to date. - Social history:: Smoking status: Patient denies any tobacco usage or history of. Patient/guardian denies using alcohol, street drugs, IV drugs, Patient/guardian denies using. - Family history:: not pertinent. Assessment: 19:50 General: Appears in no apparent distress. well groomed, well developed, well nourished, sg Behavior is calm, cooperative, appropriate for age. Pain: Complains of pain in right index finger Quality of pain is described as aching. Neuro: Level of Consciousness is awake, alert, obeys commands, Oriented to person, place, time, Speech is normal, Facial symmetry appears normal. Cardiovascular: Patient's skin is warm and dry. Chest pain is denied. Respiratory: Airway is patent Respiratory effort is even, unlabored, Respiratory pattern is regular, symmetrical. GI: No signs and/or symptoms were reported involving the gastrointestinal system. : No signs and/or symptoms were reported regarding the genitourinary system. EENT: No signs and/or symptoms were reported regarding the EENT system. Derm: Skin is pink, warm \\T\\ dry. Musculoskeletal: Circulation, motion, and sensation intact. Range of motion: intact in all extremities. Injury Description: Laceration sustained to right index finger is clean, superficial, 0.5 to 2.5 cm long, a small amount of bleeding noted at this time. 20:24 Reassessment: orders obtained to clean and dress room and apply an aluminum finger sg splint for the patient. 21:21 Reassessment: wound has began to bleed again post cleaning, a pressure dressing has sg been reapplied. Vital Signs: 19:27 BP 141 / 89; Pulse 84; Resp 18; Temp 99.1; Pulse Ox 100% ; Weight 124.74 kg; Height 6 mg2 ft. 6 in. (198.12 cm); Pain 9/10; 19:27 Body Mass Index 31.78 (124.74 kg, 198.12 cm) mg2 ED Course: 19:16 Patient arrived in ED. ag3 19:29 Triage completed. mg2 19:30 Arm band placed on. mg2 19:35 Finesse Nance MD is Attending Physician. ma2 19:37 Slava Arrington RN is Primary Nurse. sg 19:55 Hand Right 3 View XRAY In Process Unspecified. EDMS 20:00 Patient has correct armband on for positive identification. Call light in reach. Adult sg w/ patient. Pulse ox on. NIBP on. Elevated right hand. 21:16 Wound care: to laceration located on right middle finger was cleaned with Hibiclens, sg dressed with Kerlix, Patient tolerated well. 21:22 Dressings: Steri strips 1/4 " X 3;. Aluminum finger splint applied to right index sg finger. Wound care: was dressed with Neosporin, Kerlix. 21:30 No provider procedures requiring assistance completed. Patient did not have IV access sg during this emergency room visit. Administered Medications: 19:53 Drug: [place] 10 mg-325 mg 1 tabs Route: PO; sg 20:17 Follow up: Response: No adverse reaction; Pain is unchanged, physician notified; RASS: sg Restless (+1) 20:15 Drug: TORadol 60 mg Route: IM; Site: left deltoid; sg 21:20 Follow up: Response: No adverse reaction; Pain is decreased sg Outcome: 20:58 Discharge ordered by . ma2 21:30 Discharged to home ambulatory, with family. sg 21:33 Condition: good 21:33 Discharge instructions given to patient, Instructed on discharge instructions, follow up and referral plans. medication usage, wound care, with daily dressing changes Demonstrated understanding of instructions, follow-up care, Prescriptions given X 2. 21:39 Patient left the ED. sg Signatures: Dispatcher [employer] EDMS Slava Arrington RN RN sg Finesse Nance MD MD ma2 Ozzie Madison RN RN mg2 Leyla Cooley ag3 Corrections: (The following items were deleted from the chart) 19:30 19:27 Pulse 84bpm; Resp 18bpm; Pulse Ox 100%; Temp 99.1F; 124.74 kg; Height 6 ft. 6 mg2 in.; BMI: 31.7; Pain 9/10; mg2 20:17 20:17 Response: No adverse reaction; RASS: Restless (+1) sg 21:59 19:50 Pain: Complains of pain in right middle finger Quality of pain is described as sg aching, sg 21:59 19:50 Injury Description: Laceration sustained to dorsal aspect of distal phalanx of sg right middle finger and dorsal aspect of middle phalanx of right middle finger is clean, superficial, 0.5 to 2.5 cm long, a small amount of bleeding noted at this time. sg 22:20 21:33 Discharge instructions given to patient, Instructed on discharge instructions, sg follow up and referral plans. medication usage, wound care, Demonstrated understanding of instructions, follow-up care, Prescriptions given X 2, sg
== END 2020-03-01 21:39 | disposition home or self-care (01) ==
LOC: ER 19:14
DX: S61.210A Laceration without foreign body of right index finger without damage to nail, initial encounter (principal); W27.8XXA Contact with other nonpowered hand tool, initial encounter; Y92.9 Unspecified place or not applicable; Y93.G3 Activity, cooking and baking; Z88.5 Allergy status to narcotic agent; Z91.018 Allergy to other foods
CPT/HCPCS: 96372; 99284

== ENCOUNTER 2021-06-04 22:10 | Emergency (ER) | payer OTHER ==
[2021-06-04] MEDS ORDERED: HYDROCODONE/APAP 10/325 TAB ONE (23:30)
[2021-06-05] MEDS ORDERED: LIDOCAINE 1% MPF 5 ML VIAL ONE (00:43)
[2021-06-05] MEDS ORDERED: MORPHINE 4 MG/ML SYR ONE (00:45)
[2021-06-05] MEDS ORDERED: ONDANSETRON 4 MG (ODT) TAB ONE (00:45)
--- NOTE | 2021-06-05 00:51 | ER ---
Nurse's Notes [facility] Name: Mack Duffy Age: 41 yrs Sex: Male : 1980 Arrival Date: 06/04/2021 Time: 22:16 Bed DX2 Private MD: Diagnosis: Laceration without foreign body, right knee;Contusion of right knee Presentation: 06/04 23:45 Chief complaint: Patient states: he [place] hitting his right knee on bb boat cleet which went into his knee. Care prior to arrival: None. Mechanism of Injury: Fall. Trauma event details: Injury occurred in the [facility], Injury occurred: in a recreational area. Injury occurred: June 04, 2021. 23:45 Acuity: ARIANA 3 bb 23:45 Method Of Arrival: Wheelchair bb 23:50 Coronavirus screen: At this time, the client does not indicate any symptoms associated bb with coronavirus-19. Ebola Screen: No symptoms or risks identified at this time. Initial Sepsis Screen: Does the patient meet any 2 criteria? No. Patient's initial sepsis screen is negative. Does the patient have a suspected source of infection? No. Patient's initial sepsis screen is negative. Risk Assessment: Do you want to hurt yourself or someone else? Patient reports no desire to harm self or others. Onset of symptoms was June 04, 2021. Historical: - Allergies: 23:50 mangos; bb 23:50 Vicodin; bb - Immunization history: Last tetanus immunization: < 5 years ago. Screenin:45 Abuse screen: Denies threats or abuse. Tuberculosis screening: No symptoms or risk bb factors identified. 06/05 01:16 Nutritional screening: No deficits noted. Fall Risk None identified. em Primary Survey: 06/04 23:45 NO uncontrolled hemorrhage observed. A: The patient is alert. Airway: patent. bb Breathing/Chest: Respiratory pattern: regular, Respiratory effort: spontaneous, unlabored. Circulation: Heart tones present. Disability Alert. 06/05 01:15 NO uncontrolled hemorrhage observed. A: The patient is alert. Airway: patent. em Breathing/Chest: Respiratory pattern: Respiratory effort: spontaneous, unlabored. Exposure/Environment: There is no evidence of uncontrolled external bleeding. Reassessment Airway Airway Patent Breathing/Chest Respiratory pattern. Secondary Survey: 06/04 23:45 Musculoskeletal: Reports pain in right knee. bb Assessment: 23:45 General: Appears in no apparent distress. uncomfortable, Behavior is cooperative, bb anxious. Pain: Complains of pain in right knee Pain currently is 10 out of 10 on a pain scale. Neuro: Level of Consciousness is awake, alert, obeys commands, Oriented to person, place, time, situation. Cardiovascular: Capillary refill < 3 seconds Patient's skin is warm and dry. Respiratory: Respiratory effort is even, unlabored, Respiratory pattern is regular. GI: No signs and/or symptoms were reported involving the gastrointestinal system. Derm: Skin is pink, warm \T\ dry. Musculoskeletal: Circulation, motion, and sensation intact. wound to right knee Reports pain in right knee. Vital Signs: 23:45 BP 111 / 82; Pulse 73; Resp 20 S; Temp 98.1(TE); Pulse Ox 98% on R/A; Weight 122.47 kg bb (R); Height 6 ft. 6 in. (198.12 cm) (R); Pain 10/10; 23:45 Body Mass Index 31.20 (122.47 kg, 198.12 cm) bb Luz Coma Score: 23:45 Eye Response: spontaneous(4). Verbal Response: oriented(5). Motor Response: obeys bb commands(6). Total: 15. Trauma Score (Adult): 23:45 Eye Response: spontaneous(1); Verbal Response: oriented(1); Motor Response: obeys bb commands(2); Systolic BP: > 89 mm Hg(4); Respiratory Rate: 10 to 29 per min(4); [place] Score: 15; Trauma Score: 12 ED Course: 22:16 Patient arrived in ED. wm 23:45 Patient has correct armband on for positive identification. bb 23:45 Patient maintains SpO2 saturation greater than 95% on room air. bb 23:46 Triage completed. bb 23:49 XRAY Knee RIGHT 3 view In Process Unspecified. EDMS 06/05 00:00 Britton Brandt NP is PHCP. pm1 00:00 Chance Enciso MD is Attending Physician. pm1 00:12 Sin Tilley, HIPOLITO is Primary Nurse. em 00:40 Assist provider with laceration repair on right knee that was 2.5 cm. or less using em sutures. Set up tray. Performed by Sin Tilley RN Dressed with 4X4s, Kerlix, Neosporin, Patient tolerated well. 01:08 Patient did not have IV access during this emergency room visit. em 01:15 Arm band placed on. em Administered Medications: 06/04 23:08 Drug: [place] (HYDROcodone-acetaminophen) 10 mg-325 mg 1 tabs {Note: RASS 0.} Route: PO; bb 06/05 00:28 Follow up: Response: No adverse reaction; Pain is unchanged, physician notified em 00:27 Drug: Zofran (Ondansetron) 4 mg Route: PO; em 01:16 Follow up: Response: No adverse reaction em 00:28 Drug: morphine 4 mg Route: IM; Site: right deltoid; em 01:16 Follow up: Response: No adverse reaction; Marked relief of symptoms; Pain is decreased em 00:40 Drug: Lidocaine (1 %) 5 ml Volume: 5 ml; Route: Infiltration; Site: wound; em 01:17 Follow up: Response: No adverse reaction; Marked relief of symptoms; Pain is decreased em Intake: 06/04 23:45 PO: 0ml; Total: 0ml. bb Outcome: 06/05 00:50 Discharge ordered by MD. pm1 01:15 Discharged to home with crutches. em 01:15 Condition: stable 01:15 Discharge instructions given to patient, Instructed on discharge instructions, follow up and referral plans. no drinking with medication, no driving heavy equipment, medication usage, crutch walking, wound care, Demonstrated understanding of instructions, follow-up care, medications, wound care, crutch walking, Prescriptions given X 2. 01:16 Patient's length of stay in the Emergency Department was greater than 2 hours. em 01:17 Patient left the ED. em Signatures: Dispatcher [employer] Sin Suarez, HIPOLITO MCMILLAN em Samina White RN RN bb Britton Brandt NP [employer] pm1 Roxi Larios
--- NOTE | 2021-06-05 00:51 | EDPHYS ---
Physician Documentation [facility] Name: Mack Duffy Age: 41 yrs Sex: Male : 1980 Arrival Date: 06/04/2021 Time: 22:16 Bed DX2 Private MD: ED Physician Chance Enciso HPI: 06/05 00:48 This 41 yrs old Male presents to ER via Wheelchair with complaints of Fall pm1 Injury - KNEE. 00:48 Details of fall: The patient fell from an upright position, while standing, and struck pm1 Boat tie with right knee resulting in laceration. Onset: The symptoms/episode began/occurred today. Associated injuries: The patient sustained right knee, laceration, 2 cm(s). Severity of symptoms: in the emergency department the symptoms have improved, Bleeding stopped. The patient has not experienced similar symptoms in the past. The patient has not recently seen a physician. Patient was getting off his boat to secure it to the dock. There was a missing portion of the dock and he missed a step with his left foot, fell and hit his right knee onto the boat tie resulting in a laceration to the right kneecap. Historical: - Allergies: 06/04 23:50 mangos; bb 23:50 Vicodin; bb - Immunization history: Last tetanus immunization: < 5 years ago. ROS: 06/05 00:48 Constitutional: Negative for fever, chills, and weight loss, Cardiovascular: Negative pm1 for chest pain, palpitations, and edema, Respiratory: Negative for shortness of breath, cough, wheezing, and pleuritic chest pain. Neuro: Negative for headache, weakness, numbness, tingling, and seizure. MS/extremity: Positive for laceration, pain, of the right knee, Negative for decreased range of motion, deformity. Skin: Positive for laceration(s), of the right knee. All other systems are negative. Exam: 00:48 Constitutional: This is a well developed, well nourished patient who is awake, alert, pm1 and in no acute distress. Head/Face: Normocephalic, atraumatic. 00:48 Cardiovascular: Exam negative for acute changes, Rate: normal, Rhythm: regular, Pulses: no pulse deficits are appreciated. 00:48 Respiratory: Exam negative for acute changes, respiratory distress, shortness of breath. 00:48 Skin: Appearance: normal except for affected area, injury, laceration(s), the wound is approximately 2 cm(s), with a depth of 1 cm(s), of the right knee. 00:48 Neuro: Exam negative for acute changes, Orientation: is normal, Mentation: is normal, Motor: is normal, moves all fours, Sensation: is normal, no obvious gross deficits. Vital Signs: 06/04 23:45 BP 111 / 82; Pulse 73; Resp 20 S; Temp 98.1(TE); Pulse Ox 98% on R/A; Weight 122.47 kg bb (R); Height 6 ft. 6 in. (198.12 cm) (R); Pain 10/10; 23:45 Body Mass Index 31.20 (122.47 kg, 198.12 cm) bb Moclips Coma Score: 23:45 Eye Response: spontaneous(4). Verbal Response: oriented(5). Motor Response: obeys bb commands(6). Total: 15. Trauma Score (Adult): 23:45 Eye Response: spontaneous(1); Verbal Response: oriented(1); Motor Response: obeys bb commands(2); Systolic BP: > 89 mm Hg(4); Respiratory Rate: 10 to 29 per min(4); Moclips Score: 15; Trauma Score: 12 Laceration: 06/05 00:48 Wound Repair of 2cm ( 0.8in ) subcutaneous laceration to right knee. Linear shaped.. pm1 Distal neuro/vascular/tendon intact. Anesthesia: Local anesthetic administered with 5 mls of 1% lidocaine. Wound prep: Extensive cleansing with hibiclenz by me, Wound irrigation with saline by ga, Wound explored extensively, Copious irrigation. Skin closed with 3 3-0 Prolene using simple sutures and sterile technique. Dressed with Neosporin, 4x4's. Patient tolerated well. MDM: 00:11 Patient medically screened. pm1 00:48 Data reviewed: vital signs. Data interpreted: Pulse oximetry: on room air is 98 %. pm1 Interpretation: normal. Counseling: I had a detailed discussion with the patient and/or guardian regarding: the historical points, exam findings, and any diagnostic results supporting the discharge/admit diagnosis, radiology results, the need for outpatient follow up, to return to the emergency department if symptoms worsen or persist or if there are any questions or concerns that arise at home. 06/04 23:05 Order name: XRAY Knee RIGHT 3 view 06/05 00:48 Order name: Knee Immobilizer; Complete Time: 01:07 pm1 06/05 00:56 Order name: Crutches; Complete Time: 01:08 pm1 Administered Medications: 06/04 23:08 Drug: [place] (HYDROcodone-acetaminophen) 10 mg-325 mg 1 tabs {Note: RASS 0.} Route: PO; bb 06/05 00:28 Follow up: Response: No adverse reaction; Pain is unchanged, physician notified em 00:27 Drug: Zofran (Ondansetron) 4 mg Route: PO; em 01:16 Follow up: Response: No adverse reaction em 00:28 Drug: morphine 4 mg Route: IM; Site: right deltoid; em 01:16 Follow up: Response: No adverse reaction; Marked relief of symptoms; Pain is decreased em 00:40 Drug: Lidocaine (1 %) 5 ml Volume: 5 ml; Route: Infiltration; Site: wound; em 01:17 Follow up: Response: No adverse reaction; Marked relief of symptoms; Pain is decreased em Disposition: 05:15 Co-signature as Attending Physician, Chance Enciso MD. [email or web address] Disposition Summary: 06/05/21 00:50 Discharge Ordered Location: Home pm1 Problem: new pm1 Symptoms: have improved pm1 Condition: Stable pm1 Diagnosis - Laceration without foreign body, right knee pm1 - Contusion of right knee pm1 Followup: pm1 - With: Emergency Department - When: As needed - Reason: Worsening of condition Followup: pm1 - With: Private Physician - When: 2 - 3 days - Reason: Recheck today's complaints, Continuance of care, Re-evaluation by your physician Discharge Instructions: - Discharge Summary Sheet pm1 - Contusion pm1 - How to Use a Knee Immobilizer pm1 - Laceration Care, Adult pm1 - Crutch Use, Adult pm1 Forms: - Medication Reconciliation Form pm1 - Thank You Letter pm1 - Antibiotic Education pm1 - Prescription Opioid Use pm1 Prescriptions: - acetaminophen-codeine 300-15 mg Oral tablet - take 2 tablet by ORAL route every 6 hours As needed as needed; 20 tablet; pm1 Refills: 0, Product Selection Permitted - Doxycycline Hyclate 100 mg Oral Tablet - take 1 tablet by ORAL route every 12 hours; 20 tablet; Refills: 0, Product pm1 Selection Permitted Signatures: Dispatcher [employer] Sin Suarez, RN RN Samina Fraire RN RN Britton Hernandez, GR[employer]ER GR[employer]ER pm1 Chance Enciso MD MD 7
[2021-06-05 01:32] VITALS: BP 111/82; TEMP 98.1; O2SAT 98
--- NOTE | 2021-06-05 08:54 | RAD REPORT ---
EXAM DESCRIPTION: RAD - Knee Right 3 View - 06/04/2021 11:50 pm CLINICAL HISTORY: PAIN COMPARISON: No comparisonsNone. FINDINGS: No fracture, dislocation or periosteal reaction.No joint effusion seen. No joint space jeanie rowing. No foreign body or other soft tissue abnormality. IMPRESSION: Negative right knee. Clinical concerns for internal derangement or occult bony injury could be further assessed with MR im sandeep.
== END 2021-06-05 01:17 | disposition home or self-care (01) ==
LOC: ER 22:10
PROC: 0JQN0ZZ Repair Right Lower Leg Subcutaneous Tissue and Fascia, Open Approach (ICD-10-PCS; principal; 2021-06-05)
DX: S81.011A Laceration without foreign body, right knee, initial encounter (principal); W22.8XXA Striking against or struck by other objects, initial encounter; Y93.89 Activity, other specified; Y92.814 Boat as the place of occurrence of the external cause; Z88.5 Allergy status to narcotic agent; Z91.018 Allergy to other foods
CPT/HCPCS: 96372; 99284